=== PATIENT | female | born 1950 | race Caucasian/White ===

== ENCOUNTER 2020-08-27 06:32 | Inpatient (IN) | payer MEDICARE, OTHER, SELFPAY ==
--- NOTE | ~2020-08-27 | CT_ITS ---
EXAMINATION: CT abdomen pelvis w con INDICATION: Epigastric pain TECHNIQUE: Computed tomographic images of the abdomen and pelvis were obtained after the administrati on of 100 cc of Omnipaque 350 intravenous contrast. The dose-length product (DLP) was 589.17 mGy-cm. Automated exposure control and iterative reconstruction technique were employed. COMPARISON: None available FINDINGS: Minimal dependent atelectasis is present in the lung bases. The heart size is normal. Cysts of the liver measure up to 11 mm in the right hepatic lobe. The spleen and adrenal glands are unrema rkable. There is moderate fatty infiltration of the pancreas. There is intrahepatic and extrahepatic biliary dilatation with the common bile duct measuring up to 10 mm. There is mild gallbladder distent ion. There is a questionable stone in the distal common bile duct. A large posterior diverticulum of the fundus is noted in the stomach. Cysts of the kidneys measure up to 10 mm on the left. No patholog ically enlarged abdominal or pelvic lymph nodes are identified. There is no free intraperitoneal gas or evidence of bowel obstruction. There is severe lumbar spondylosis at L4-5. IMPRESSION: 1. Intrahepatic and extrahepatic biliary dilatation with possible choledocholithiasis in the distal c ommon bile duct. Recommend further evaluation by MRCP or ERCP. Reviewed, dictated and finalized at location A. IMPRESSION: 1. Intrahepatic and extrahepatic biliary dilatation with possible choledocholit hiasis in the distal common bile duct. Recommend further evaluation by MRCP or ERCP.
--- NOTE | ~2020-08-27 | MR_ITS ---
EXAMINATION: MR MRCP wo/w con/w 3D wo ind DATE: 08/28/2020 11:00 INDICATION: Choledocholithiasis presenting with epigastric pain, nausea and vomiting TECHNIQUE: Magnetic resonance imaging (MRI) of the abdomen was performed without and with 15 mL Multi andi intravenous contrast. Sequences included coronal T2-weighted SS-FSE, coronal T2-weighted FS SS- FSE, coronal T2-weighted FS FIESTA, axial T2-weighted FS FIESTA, axial T2-weighted FIESTA, sagittal T 2-weighted SS-FSE, axial T1-weighted dual-echo FSPGR, axial T2-weighted SS-FSE, axial T1-weighted LAV A, axial T2-weighted STIR FSE. Thick-slab T2-weighted FRFSE-XL images were obtained for magnetic reso nance cholangiopancreatography (MRCP). Rotating maximum intensity projection 3-D reconstructions of t he volumetric data were created by the technologist. Postcontrast sequences included a time course of axial T1-weighted LAVA. COMPARISON: CT dated 08/27/2020 FINDINGS: ABDOMEN MRI: Heart size is normal. No pericardial or pleural effusion. A few scattered nonenhancing T2 hyperintens e cysts, the largest in segment 7 measuring 10 mm in maximal diameter. Gallbladder is normal with no cholelithiasis. Trace amount of pericholecystic fluid at the gallbladder fossa. This moderate fatty r eplacement of the pancreas. Spleen and bilateral adrenal glands are normal. Prominent gas and fluid-f illed cyst arising from the gastric fundus. There are a few small nonenhancing T2 hyperintense left r enal cysts measuring up to 8mm. The visualized bowels are unremarkable. Moderate lower lumbar spondyl osis. ABDOMEN MRCP: Common hepatic duct is dilated to 9 mm. The common bile duct is dilated to 7 mm which is at the upper limits of normal for age. Intrahepatic biliary tree is unremarkable. No choledocholithiasis, strictu re or obstructing masses. The main pancreatic duct is normal. IMPRESSION: 1. Nonspecific minimal pericholecystic fluid at the gallbladder fossa along side the normal-appearing gallbladder. No cholelithiasis. 2. Borderline dilated common bile duct measuring 7 mm and common hepatic duct measuring up to 9 mm wi th no intrahepatic biliary ductal dilation or choledocholithiasis. Reviewed, dictated and finalized at location A. IMPRESSION: 1. Nonspecific minimal pericholecystic fluid at the gallbladder fossa along scot e the normal-appearing gallbladder. No cholelithiasis. 2. Borderline dilated common bile duct measuring 7 mm and common hepatic duct m easuring up to 9 mm with no intrahepatic biliary ductal dilation or choledochol ithiasis.
[2020-08-27 06:37] VITALS: BP 120/88; PULSE 88; RESP 20; TEMP 36.4; O2SAT 100
[2020-08-27 06:45] VITALS: BP 123/71; PULSE 81; RESP 20; O2SAT 100
[2020-08-27 06:58] LABS: Basophils Percent Auto 0.4 % (0.2-1.2); Eosinophils Absolute Auto 0.1 K/mm3 (0-0.3); Eosinophils Percent Auto 1.5 % (0-4.4); Hematocrit 39.1 % (37.0-47.0); Immature Granulocyte Absolute 0.03 K/mm3 (0.00-0.031); Immature Granulocyte Percent A 0.4 % (0-0.5); Lymphocytes Percent Auto 10.5 % (18.3-44.2); Mean Corpuscular HGB Conc 33.2 g/dl (32-36); Mean Corpuscular Hemoglobin 31.3 pg (26-34); Mean Corpuscular Volume 94.2 fl (80-100); Mean Platelet Volume 9.5 fl (7.4-10.4); Monocytes Absolute Auto 0.4 K/mm3 (0.1-0.6); Monocytes Percent Auto 5.1 % (2.6-8.5); Neutrophils Percent Auto 82.1 % (45.5-73.1); Platelet Count Result 172 k/mm3 (150-375); Red Blood Count 4.15 M/mm3 (4.2-5.4); Red Cell Distribution Width 12.9 % (11.5-14.5); White Blood Count 8.6 K/mm3 (4.5-10.0)
--- NOTE | 2020-08-27 07:10 | PC.NURSE ---
Pt attempting to give urine sample at this time.
[2020-08-27 07:11] LABS: Alanine Aminotransferase 74 U/L (4-35); Albumin Level 4.1 g/dL (3.5-5.1); Alkaline Phosphatase 81 U/L (38-126); Anion Gap 4 mmol/L (8-16); Aspartate Amino Transferase 197 U/L (14-36); Bilirubin,Total 0.7 mg/dL (0.2-1.3); Blood Urea Nitrogen 16 mg/dL (7-17); Calcium 9.4 mg/dL (8.4-10.2); Carbon Dioxide 32 mmol/L (22-30); Chloride 104 mmol/L (98-107); Estimated Glomerular Filt Rate > 60; Glucose 101 mg/dL (65-105); Lipase 64 U/L (23-300); Potassium 3.5 mmol/L (3.4-5.0); Sodium 140 mmol/L (137-145)
--- NOTE | 2020-08-27 07:30 | ED.ABDPAIN ---
HPI - Abdominal Pain General Chief Complaint: Abdominal Pain Stated Complaint: upper abd pain, vomting Time Seen by Provider: 08/27/20 07:19 History of Present Illness HPI narrative: Epigastric pain since early this morning. Severe. Radiates to back. Associated with one episode of vomiting. Improving in severity, now mild. One previous episode resolved spontaneously. No previous GI surgery. Related Data Home Medications Medication Instructions Recorded Confirmed bupropion HCl 300 mg PO QAM 08/27/20 08/27/20 zolpidem 10 mg PO HS 08/27/20 08/27/20 Allergies Allergy/AdvReac Type Severity Reaction Status Date / Time naproxen Allergy Unknown Rash Verified 08/27/20 06:46 Review of Systems Review of Systems: All systems reviewed & are unremarkable except as noted in HPI and below Constitutional: Constitutional: Denies chills and Denies fever(s) ENT: Reports system reviewed and no additional complaints, except as documented Cardiovascular: Cardiovascular: Denies chest pain Respiratory: Respiratory: Denies dyspnea Gastrointestinal: Gastrointestinal: Reports abdominal pain, Denies constipation, Denies diarrhea, Reports nausea and Reports vomiting Genitourinary: Genitourinary: Reports no additional female genitourinary complaints [facility] Past Medical History Medical History (Updated 08/27/20 @ 15:33 by Gulshan Dominguez MD) Depression with anxiety Insomnia Surgical History Surgical History (Updated 08/27/20 @ 14:21 by Odalys Chen NP) H/O emergency section History of dilatation and curettage Hx of cataract extraction Bilateral S/P cervical spinal fusion C5 - C6 Family History Family History (Updated 08/27/20 @ 14:28 by Odalys Chen NP) Son Accident Father COPD (chronic obstructive pulmonary disease) Mother COPD (chronic obstructive pulmonary disease) Cervical cancer Social History Social History (Updated 08/27/20 @ 14:29 by Odalys Chen NP) Social History: 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 She is to her who is also a teacher. They had 3 children but the oldest son at the age of 19. She had all 3 boys. She has not drink alcohol in many years. She has never smoked. She does not use any marijuana or illicit drug. The patient desires to have her is a durable power patent attorney for healthcare. She desires to be a full code. Smoking status: Never smoker Gender identity (if verbalized by the patient): Female Exam Const: General: no acute distress and alert Nutritional Appearance: well nourished Orientation/consciousness: patient oriented x3 HENMT: Head: normal to inspection Resp: Effort & Inspection: normal respiratory effort Auscultation: clear to auscultation bilaterally Cardio: Rate: regular rate Rhythm: regular rhythm GI: Inspection: non-distended GI Palp: Yes Soft to palpation, Yes Tenderness to palpation present (GI) (mild epigastric), No Guarding due to palpation present (GI) and No Rebound tenderness present Skin: General skin exam: normal color Neuro: General: patient oriented x3 and moves all extremities Speech: normal speech Extrem: General: normal to inspection Psych: Appearance: grossly normal and well kempt Mental Status: mental status grossly normal Affect: normal affect Attitude: cooperative Course Vital Signs Vital signs: Vital Signs Temperature 36.4 C 08/27/20 06:37 Pulse Rate 88 08/27/20 06:37 Respiratory Rate 20 08/27/20 06:37 Blood Pressure 120/88 08/27/20 06:37 Pulse Oximetry 100 08/27/20 06:37 Temperature 36.0 C L 08/27/20 14:00 Pulse Rate 86 08/27/20 14:00 Respiratory Rate 16 08/27/20 14:00 Blood Pressure 120/68 08/27/20 14:00 Pulse Oximetry 97 08/27/20 14:00 MDM - Abdominal Pain MDM Narrative Medical decision making narrative: H&P sounds likely gall bladder disease. Mild elevations and CT results also suspicio
[2020-08-27 07:48] LABS: Add Urine Microscopic? YES; Appearance Urine Cloudy (Clear); Bacteria Urine Trace /hpf; Bilirubin Urine Negative (Negative); Blood Urine Negative (Negative); Color Urine Yellow (Yellow); Glucose Urine UA Negative (Negative); Ketones Urine Trace mg/dL (Negative); Leukocyte Esterase Ur Negative LEU/UL (Negative); Mucus Urine Rare /lpf; Nitrate Urine Negative (Negative); Protein Urine Negative (Negative); RBC Urine 0-2 /hpf (0-2); Specific Grav Ur 1.021 (1.001-1.035); Urobilinogen Urine Negative mg/dL (<2.0); WBC Urine 0-3 /hpf
[2020-08-27 09:30] VITALS: BP 112/72; PULSE 78; RESP 18; O2SAT 100
[2020-08-27 10:59] VITALS: BP 121/86; PULSE 73; RESP 18; O2SAT 98
--- NOTE | 2020-08-27 11:05 | PC.NURSE ---
This patient, Sharon Heller, was admitted to Medical Room 347-. Patient/family oriented to hospital policies and general routines including ID bracelet, bed and alarms, visiting hours, pain management, procedures, bathroom and other care routines, personal items, smoking policy, room service/diet, and visiting hours. Information on how to activate the Rapid Response Team has been discussed. Patient/Family are encouraged to report perceived risks to care and to ask questions if they do not understand what they are told or what they should do.
[2020-08-27] MEDS: LACTATED RINGERS 1,000 ML 75 ML IV CONT (12:06)
[2020-08-27 14:00] VITALS: BP 120/68; PULSE 86; RESP 16; TEMP 36; O2SAT 97
--- NOTE | 2020-08-27 14:02 | PM.IMHP ---
H&P: HPI History of Present Illness Date/Time: 08/27/20 14:02 this is a 69-year-old female patient who is fairly healthy. She is only on 2 medications that was started after the passing of her son. He was only 19 years old at the time. The patient stated that she had an episode this past Friday her she had this midsternal severe stabbing pain that radiated to her back and her shoulder. She did not eat any fatty foods or anything greasy. She stated that she has been eating a healthy diet and had to use an apples before bed but then developed this discomfort. She laid in the recliner that night which seemed to help and she took some Tums and her pain eventually went away. However this morning at 4:00 a.m. she developed this discomfort again. She said it was midsternal severe sharp pain that went away to her back. She not had any previous gallbladder issues. She took some Tums at 4:00 a.m. this morning went back to bed but then woke up later and the pain was still there. This is when she decided to come to the emergency room. CT of the abdomen was read per radiologist as intrahepatic and extrahepatic biliary dilatation with possible choledocholithiasis in the distal common bile duct. Recommend further evaluation by MRCP or ERCP. AST is 197 any ALT 74. GI has been consulted and has already plan on a MRCP. A clear liquid diet was ordered for the patient. She had only vomited 1 time this morning.. She no longer has any discomfort. On Zosyn. The patient is being admitted to inpatient status on the date of service of 08/27/2020. Chief Complaint: Abdominal pain Review of Systems Review of Systems: All systems reviewed & are unremarkable except as noted in HPI and below Constitutional: Constitutional: Reports as per HPI and Reports no additional constitutional complaints Eyes: Eyes: Reports as per HPI and Reports no additional eye complaints ENT: Reports system reviewed and no additional complaints, except as documented and Reports Normal hearing present Cardiovascular: Cardiovascular: Reports no additional cardiovascular complaints Respiratory: Respiratory: Reports no additional respiratory complaints and Reports no additional respiratory complaints Gastrointestinal: Gastrointestinal: Reports as per HPI and Reports no additional gastrointestinal complaints Musculoskeletal: Musculoskeletal: Reports no additional musculoskeletal complaints Integumentary/Breasts: Skin/Breast: Reports system reviewed and no additional complaints, except as docu and Reports as per HPI Neurologic: Reports system reviewed and no additional complaints, except as documented, Reports as per HPI and Reports Normal hearing present Psychiatric: Psychiatric: Reports no additional psychiatric complaints and Reports as per HPI Endocrine: Endocrine: Reports no additional endocrine complaints Hematologic/Lymphatic: Hematologic/Lymphatic: Reports no additional hematologic/lymphatic complaints Allergic/Immunologic: Allergic/Immunologic: Reports no additional allergic/immunologic complaints PMFSH Past Medical History Medical History (Updated 08/27/20 @ 14:33 by Odalys Chen NP) Depression with anxiety Insomnia Surgical History Surgical History (Updated 08/27/20 @ 14:21 by Odalys Chen NP) H/O emergency section History of dilatation and curettage Hx of cataract extraction Bilateral S/P cervical spinal fusion C5 - C6 Family History Family History (Updated 08/27/20 @ 14:28 by Odalys Chen NP) Son Accident Father COPD (chronic obstructive pulmonary disease) Mother COPD (chronic obstructive pulmonary disease) Cervical cancer Social History Social History (Updated 08/27/20 @ 14:29 by Odalys Chen NP) Social History: 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 She is to her who is also a teacher. They had 3 children but the oldest son at the age of 19. She had all 3 boys.
[2020-08-27] MEDS: LOPERAMIDE HCL 2 MG CAPSULE PO (16:08)
[2020-08-27] MEDS: ZOLPIDEM TARTRATE (*CRX) 5 MG TABLET 10 MG PO (21:27)
[2020-08-27 21:47] VITALS: BP 106/63; PULSE 72; RESP 16; TEMP 36.7; O2SAT 98
[2020-08-28 05:39] LABS: Basophils Percent Auto 0.4 % (0.2-1.2); Eosinophils Absolute Auto 0.1 K/mm3 (0-0.3); Hematocrit 37.2 % (37.0-47.0); Hemoglobin 12.5 g/dL (12.0-15.0); Immature Granulocyte Absolute 0.01 K/mm3 (0.00-0.031); Immature Granulocyte Percent A 0.2 % (0-0.5); Lymphocytes Absolute Auto 1.03 K/mm3 (0.9-3.2); Lymphocytes Percent Auto 22.8 % (18.3-44.2); Mean Corpuscular HGB Conc 33.6 g/dl (32-36); Mean Corpuscular Hemoglobin 32.1 pg (26-34); Mean Corpuscular Volume 95.4 fl (80-100); Mean Platelet Volume 9.6 fl (7.4-10.4); Monocytes Absolute Auto 0.2 K/mm3 (0.1-0.6); Monocytes Percent Auto 5.3 % (2.6-8.5); Neutrophils Absolute Auto 3.1 K/mm3 (1.3-6.7); Neutrophils Percent Auto 69.3 % (45.5-73.1); Platelet Count Result 160 k/mm3 (150-375); Red Cell Distribution Width 13.2 % (11.5-14.5); White Blood Count 4.5 K/mm3 (4.5-10.0)
[2020-08-28] MEDS: LACTATED RINGERS 1,000 ML 75 ML IV CONT (05:49)
[2020-08-28 05:50] LABS: Lactic Acid Reflex 0.8 mmol/L (0.7-2.1)
[2020-08-28 05:53] VITALS: BP 107/61; PULSE 95; RESP 16; TEMP 36; O2SAT 97
[2020-08-28 05:59] LABS: Alanine Aminotransferase 124 U/L (4-35); Albumin Level 3.4 g/dL (3.5-5.1); Alkaline Phosphatase 69 U/L (38-126); Anion Gap 2 mmol/L (8-16); Aspartate Amino Transferase 110 U/L (14-36); Bilirubin,Total 0.3 mg/dL (0.2-1.3); Blood Urea Nitrogen 7 mg/dL (7-17); Calcium 8.5 mg/dL (8.4-10.2); Carbon Dioxide 35 mmol/L (22-30); Chloride 106 mmol/L (98-107); Estimated CRCL calculation 55 ml/min; Estimated Glomerular Filt Rate > 60; Glucose 99 mg/dL (65-105); Magnesium 1.9 mg/dL (1.6-2.3); Potassium 3.9 mmol/L (3.4-5.0); Sodium 143 mmol/L (137-145)
[2020-08-28] MEDS: buPROPion HCL XL (24 HR) 150 MG TABCR 300 MG PO (08:07)
[2020-08-28] MEDS: LORazepam INJ (*CRX) 2 MG/ML VIAL 0.5 MG IV PUSH (09:38)
--- NOTE | 2020-08-28 13:04 | PM.CNGS ---
Assessment and Plan Assessment and plan (1) Epigastric abdominal pain: Code(s): R10.13 - Epigastric pain Status: Acute Assessment and Plan: I have reviewed the CT and MRI both independently and with Dr. Valladares in Radiology. I have also discussed the patient's case with the hospitalist and GI. The patient had findings on the CT that were concerning for biliary duct dilation and possible choledocholithiasis. She also had slight elevation in her liver enzymes that would potentially support this finding. Her bilirubin has remained normal and her symptoms have resolved. The follow-up MRI showed no evidence of cholelithiasis or common bile duct obstruction. I discussed with the patient that she could have passed a small stone, but there are no other signs of cholelithiasis on imaging. There also other possibilities of cardiac or other GI causes of her pain. I discussed options of proceeding with laparoscopic cholecystectomy versus observation. Laparoscopic cholecystectomy would offer a potential prevention of recurrent attacks like this in the future, but given that she has no other signs of cholelithiasis surgery may offer no benefit over observation alone. Patient wishes to proceed with observation. I discussed maintaining a low-fat diet and also discussed warning signs of recurrent attacks including epigastric pain along with signs jaundice, scleral icterus, or dark tea-colored urine. Patient feels come with observation at this time. She was given my contact information should she wish to proceed with surgery in the future or have further questions. If she tolerates a low-fat diet, she may be discharged from surgical standpoint. Follow-up as needed. (2) Elevated liver enzymes: Code(s): R74.8 - Abnormal levels of other serum enzymes Status: Acute (3) Abnormal CT of the abdomen: Code(s): R93.5 - Abnormal findings on diagnostic imaging of other abdominal regions, including retroperitoneum Status: Acute History of Present Illness Consult details Consult date: 08/28/20 Reason for consult: abdominal pain Requesting physician: Filiberto Paez MD Narrative: this is a 69-year-old woman who I am asked to see in regards to possible biliary colic. She presented to the emergency department on 08/27 with complaints of epigastric pain that started around 4:00 a.m.. This woke her from sleep and she felt somewhat substernal and epigastric pain that was followed by an episode of nausea and vomiting. She did not recall any heavy or fried foods that she ate the night before for dinner. She did have 1 mild episode similar to this about 4 days prior, but this resolved on its own. Prior to this she had never experienced any symptoms like this in the past. Her symptoms eventually went away in the emergency department and she has not had any recurrent symptoms since. She denies prior history of liver problems. She has had a history of GERD but denies any history of peptic ulcer disease. She states that these symptoms were different than what she typically gets with GERD. She denies any family history of gallbladder disease. She does note that she has lost 19 lb over the past 2 months but this has been intentional due to healthy diet and activity changes. She states that she has been eating smaller portions and eating more fish, fruits, and vegetables. She has also been more active with frequent walks and light exercise. Review of Systems Review of Systems: All systems reviewed & are unremarkable except as noted in HPI and below Eyes: Eyes: Denies change in vision ENT: Denies hearing loss, Denies neck pain and Denies sore throat Cardiovascular: Cardiovascular: Denies chest pain and Denies dyspnea Respiratory: Respiratory: Denies cough, Denies dyspnea and Denies wheezing Gastrointestinal: Gastrointestinal: Reports as per HPI Genitourinary: Genitourinary: Denies hematuria and Denies dysuria Musc
--- NOTE | 2020-08-28 13:55 | PM.IMPN ---
Progress Note: A&P Assessment and Plan (1) Epigastric abdominal pain: Code(s): R10.13 - Epigastric pain Status: Acute Assessment and Plan: Initially felt to be choledocholithiasis on CT abd. MRCP shows no stones or evidence of cholecystitis. May have been related to passed stone given the transaminitis? EGD tomorrow by Dr Tripathi to evaluate for gastritis or ulcers. Lipase negative. Appreciate GI and general surgery recommendations. Discussed case with Dr Tripathi and Dr Frausto. Plan is for EGD tomorrow. If she continues to have issues and wishes for surgical intervention, she can see Dr Frausto on outpatient basis. Continue supportive care with IV hydration, antiemetics and pain control as needed (PRN Tylenol with caution given transaminitis). Started low fat diet, NPO at midnight. (2) Elevated liver enzymes: Code(s): R74.8 - Abnormal levels of other serum enzymes Status: Acute Assessment and Plan: Unsure of chronicity with no previous labs available for comparison. Bilirubin is normal. May have passed a gallstone? Hepatitis panel in AM. (3) Depression with anxiety: Code(s): F41.8 - Other specified anxiety disorders Status: Chronic Assessment and Plan: Continue home Wellbutrin. Stable, no acute issues. (4) Insomnia: Code(s): G47.00 - Insomnia, unspecified Status: Chronic Assessment and Plan: Continue her home zolpidem. Subjective Date/time seen: 08/28/20 13:30 Interval history: Ms. Heller is a pleasant 69yo F admitted for abdominal pain. She is seen in follow-up this afternoon with her , Denys, at the bedside. She reports a few acute episodes of epigastric abdominal pain, last being early yesterday morning that woke her out of her sleep and became severe enough for her to come to ER. At that time, pain radiated to her back between shoulder blades. Abdominal pain is resolved now. She had one episode of emesis yesterday, no nausea or vomiting today. She denies chest pain or shortness of breath. Her only complaint at this time is being hungry since she was NPO for testing. Review of Systems Review of Systems: All systems reviewed & are unremarkable except as noted in HPI and below Exam Narrative: Exam Narrative: General: Female resting comfortably sitting up in bed in no acute distress. HEENT: Normocephalic, EOMI, oral mucosa tacky. Cardiovascular: Rate and rhythm are regular. Respiratory: Lungs clear to auscultation bilaterally. Respirations even and non-labored. Abdomen: Soft, non-tender to palpation in all 4 quadrants, non-distended, bowel sounds present. Extremities: Peripheral pulses intact. No edema. Neuro: No focal neurological deficits. Speech is clear. Objective Data Vital Signs Vital Signs: Last Vital Signs Temp 96.9 F L 08/28/20 14:00 Pulse 84 08/28/20 14:00 Resp 18 08/28/20 14:00 BP 93/52 L 08/28/20 14:00 Pulse Ox 100 08/28/20 14:00 Intake/Output Intake/Output: Intake & Output 08/25/20 08/26/20 08/27/20 08/28/20 23:59 23:59 23:59 23:59 Intake Total 150 1100 Balance 150 1100 Meds/Results Medications: Active Medications Generic Name Dose Route Start Last Admin Trade Name Freq PRN Reason Stop Dose Admin Bupropion HCl 300 mg 08/28/20 09:00 08/28/20 08:07 Bupropion Hcl Xl (24 Hr) 150 Mg Tabcr PO 300 mg QAM CLAY Administration Lactated Ringer's 1,000 mls @ 75 mls/hr 08/27/20 10:05 08/28/20 05:49 Lr - Lactated Ringers Iv IV CONT 75 mls/hr .[id number] CLAY Administration Piperacillin/Tazobactam/Dextrose 3.375 gm in 50 mls @ 100 mls/hr 08/27/20 17:00 08/28/20 11:45 Zosyn 3.375 Gm/D5w 50ml Pm IVPB Infused Q6HR CLAY Infusion Acetaminophen 1,000 mg in 100 mls @ 400 mls/hr 08/27/20 14:38
--- NOTE | 2020-08-28 13:56 | ECG_ITS ---
Measurements Intervals [place] Rate: 84 P: 60 MT: 159 QRS: -24 QRSD: 87 T: 41 QT: 364 QTc: 431 Interpretive Statements SINUS RHYTHM DELAYED PRECORDIAL R/S TRANSITION BORDERLINE T WAVE ABNORMALITY- INFERIOR LEADS BORDERLINE ECG Electronically Signed On 08-28-2020 14:54:15 CDT by Michael Lynch D.O.
[2020-08-28 14:00] VITALS: BP 93/52; PULSE 84; RESP 18; TEMP 36.1; O2SAT 100
--- NOTE | 2020-08-28 15:41 | WPDGICN ---
Assessment and Plan Assessment and plan (1) Epigastric abdominal pain: Code(s): R10.13 - Epigastric pain Status: Acute Assessment and Plan: better now, probably she passed small stone (biliary duct reviewed by mrcp- no strictures, stones or lesions) will do EGD tomorrow (patient would like to know if ulcers, hernia, etc) (2) Elevated liver enzymes: Code(s): R74.8 - Abnormal levels of other serum enzymes Status: Acute Assessment and Plan: probably biliary related, repeat again tomorrow surgery evaluated patient and patient decided observation will get also hepatitis panel she denies previous history of elevated liver enzymes (3) Abnormal CT of the abdomen: Code(s): R93.5 - Abnormal findings on diagnostic imaging of other abdominal regions, including retroperitoneum Status: Acute Assessment and Plan: reviewed (4) Nausea and vomiting in adult: Code(s): R11.2 - Nausea with vomiting, unspecified Status: Acute Assessment and Plan: egd tomorrow (5) Colon cancer screening: Code(s): Z12.11 - Encounter for screening for malignant neoplasm of colon Status: Acute Assessment and Plan: she is due to have a colonoscopy, will set up as outpatient GI Consult Note Consult date/time: 08/28/20 15:41 Reason for consult: epigastric pain, elevated liver enzymes HPI: Sharon Heller is a 69 year old female here after had severe episode of epigastric pain with radiation to her back that woke her up, stabbing sensation, associated with nausea and vomiting, took Tums and pain resolved when she arrived to ER. She had similar episode last Friday but went away quickly. CT of the abdomen reviewed, mild intrahepatic and extrahepatic biliary dilatation with possible choledocholithiasis in the distal common bile duct. AST 197 and ALT 74 (denies history of liver disease), finally MRCP was done, showed nonspecific minimal pericholecystic fluid at the gallbladder fossa along side the normal-appearing gallbladder. No cholelithiasis, borderline dilated common bile duct measuring 7 mm and common hepatic duct measuring up to 9 mm with no intrahepatic biliary ductal dilation or choledocholithiasis. Now she is asymptomatic, never had EGD. Her last colonoscopy 10 years ago. She also lost some weight but after eating healthier food and exercising more. Review of Systems Constitutional: Constitutional: Denies chills Eyes: Eyes: Denies blurry vision ENT: Reports Normal hearing present Cardiovascular: Cardiovascular: Denies chest pain Respiratory: Respiratory: Denies dyspnea Gastrointestinal: Gastrointestinal: Reports abdominal pain, Reports nausea and Reports vomiting Genitourinary: Genitourinary: Denies hematuria Musculoskeletal: Musculoskeletal: Denies neck pain Integumentary/Breasts: Skin/Breast: Denies dry skin Neurologic: Denies headache(s) Psychiatric: Psychiatric: Reports no additional psychiatric complaints PMF Past Medical History Medical History Depression with anxiety Insomnia Surgical History Surgical History H/O emergency section History of dilatation and curettage Hx of cataract extraction Bilateral S/P cervical spinal fusion C5 - C6 Family History Family History Son Accident Father COPD (chronic obstructive pulmonary disease) Mother COPD (chronic obstructive pulmonary disease) Cervical cancer Social History Social History Social History: 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 She is to her who is also a teacher. They had 3 children but the oldest son at the age of 19. She had all 3 boys. She has not drink alcohol in many years. She has never smo
[2020-08-28 16:54] VITALS: PULSE 88; RESP 18; O2SAT 98
[2020-08-28 20:00] VITALS: PULSE 88; RESP 18; O2SAT 98
[2020-08-28 21:23] VITALS: BP 114/59; PULSE 70; RESP 16; TEMP 36.1; O2SAT 100
[2020-08-28] MEDS: ZOLPIDEM TARTRATE (*CRX) 5 MG TABLET 10 MG PO (21:42)
--- NOTE | 2020-08-28 21:54 | PC.NURSE ---
At 2020 IVF running and pt states it was leaking and beeps frequently, offered to restart iv at this time and pt refused.
--- NOTE | 2020-08-28 21:55 | PC.NURSE ---
Pt again upset about IV and told Avila BAUMAN we just don't care about iv and that it has been leaking, again went in to restart iv and pt refused again to have it restarted.
[2020-08-29 04:29] VITALS: BP 108/61; PULSE 70; RESP 17; TEMP 36.5; O2SAT 97
[2020-08-29 06:00] LABS: Alanine Aminotransferase 97 U/L (4-35); Albumin Level 3.3 g/dL (3.5-5.1); Alkaline Phosphatase 68 U/L (38-126); Anion Gap 2 mmol/L (8-16); Aspartate Amino Transferase 66 U/L (14-36); Bilirubin,Total 0.2 mg/dL (0.2-1.3); Blood Urea Nitrogen 8 mg/dL (7-17); Calcium 8.1 mg/dL (8.4-10.2); Carbon Dioxide 30 mmol/L (22-30); Chloride 109 mmol/L (98-107); Estimated CRCL calculation 69 ml/min; Estimated Glomerular Filt Rate > 60; Glucose 89 mg/dL (65-105); Potassium 3.6 mmol/L (3.4-5.0); Sodium 141 mmol/L (137-145)
[2020-08-29 06:49] LABS: Hepatitis B Surface Antigen Negative (Negative)
[2020-08-29 06:55] LABS: HAV RESULT Negative (Negative); Hepatitis B Core IgM Result Negative (Negative)
[2020-08-29 07:06] LABS: Hepatitis C Virus Antibody Negative (Negative)
[2020-08-29] MEDS: buPROPion HCL XL (24 HR) 150 MG TABCR 300 MG PO (08:40)
--- NOTE | 2020-08-29 09:00 | PC.NURSE ---
Patient to GI lab via hospital wheelchair.
[2020-08-29 09:19] VITALS: BP 118/75; PULSE 80; RESP 16; TEMP 36; O2SAT 99
[2020-08-29] MEDS: LACTATED RINGERS 1,000 ML 150 ML IV CONT (09:21)
--- NOTE | 2020-08-29 09:45 | WPDANESEPPF ---
Anes - Initial Pre Proc Eval Procedure: Operation Date: 08/29/20 13:00 Proposed Procedures p Esophagogastroduodenoscopy - Filiberto Paez MD Date/Time: 08/29/20 09:45 Surgeon: Megan Alvares PA-C Pre Op Diagnosis: Acute calculous cholecystitis/choledocolithiasis Patient Data Age: 69 Gender: F Height: 5 ft 6 in Weight: 79 kg Last Vital Signs Temp 36.0 C L 08/29/20 09:19 Pulse 80 08/29/20 09:19 Resp 16 08/29/20 09:19 BP 118/75 08/29/20 09:19 Pulse Ox 99 08/29/20 09:19 Allergies Allergy/AdvReac Type Severity Reaction Status Date / Time naproxen Allergy Unknown Rash Verified 08/27/20 06:46 Home Medications Medication Instructions Recorded Confirmed Type bupropion HCl 300 mg PO QAM 08/27/20 08/27/20 History zolpidem 10 mg PO HS 08/27/20 08/27/20 History Laboratory Tests 08/29/20 08/29/20 05:26 05:26 Sodium 141 mmol/L mmol/L (137-145) Potassium 3.6 mmol/L mmol/L (3.4-5.0) Chloride 109 mmol/L H mmol/L (98-107) Carbon Dioxide 30 mmol/L mmol/L (22-30) Anion Gap 2 mmol/L L mmol/L (8-16) BUN 8 mg/dL mg/dL (7-17) Creatinine 0.70 mg/dL mg/dL (0.7-1.0) Estim Creat Clear Calc 69 ml/min ml/min Estimated GFR > 60 (59 - ) Glucose 89 mg/dL mg/dL (65-105) Calcium 8.1 mg/dL L mg/dL (8.4-10.2) Magnesium 2.0 mg/dL mg/dL (1.6-2.3) Total Bilirubin 0.2 mg/dL mg/dL (0.2-1.3) AST 66 U/L H U/L (14-36) ALT 97 U/L H U/L (4-35) Alkaline Phosphatase 68 U/L U/L (38-126) Total Protein 6.0 g/dL L g/dL (6.3-8.2) Albumin 3.3 g/dL L g/dL (3.5-5.1) Hepatitis A IgM Ab Negative (Negative) Hep Bs Antigen Negative (Negative) Hep B Core IgM Ab Negative (Negative) Hepatitis C Ab Screen Negative (Negative) Patient hx anesthesia problems: none Family hx anesthesia problems: none PMFSH Past Medical History Medical History Colon cancer screening Depression with anxiety Insomnia Nausea and vomiting in adult Surgical History Surgical History H/O emergency section History of dilatation and curettage Hx of cataract extraction Bilateral S/P cervical spinal fusion C5 - C6 Family History Family History Son Accident Father COPD (chronic obstructive pulmonary disease) Mother COPD (chronic obstructive pulmonary disease) Cervical cancer Social History Social History Social History: 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 She is to her who is also a teacher. They had 3 children but the oldest son at the age of 19. She had all 3 boys. She has not drink alcohol in many years. She has never smoked. She does not use any marijuana or illicit drug. The patient desires to have her is a durable power estate planning attorney for healthcare. She desires to be a full code. Smoking status: Never smoker Gender identity (if verbalized by the patient): Female Anes - Eval Final PreProcedure Day of Procedure 08/29/20 09:45 Patient weight: overweight Heart: regular rate and rhythm Lungs: clear to auscultation Airway: Mallampati scale class II Neurological: other (alert) Last oral intake: >/= 8 hours ASA classification: II Emergent: no Anesthetic plan: proceed Anesthesia type and monitoring: general GIVS and standard monitoring Informed Consent: The patient's anesthetic plan and its attendant risks and benefits were discussed with the patient/family/POA. Questions were solicited and answers provided to the satisfaction of the patient/family/POA.
--- NOTE | 2020-08-29 10:37 | WPDHPUPDATE1 ---
History and Physical Update Update Date/Time: 08/29/20 10:37 History and Physical has been reviewed, including an updated exam of the patient. There are NO changes in the patient's condition. Risks, benefits, and alternatives have been discussed and questions answered. Patient agrees to proceed with procedure.
[2020-08-29 10:40] VITALS: BP 104/66; PULSE 80; RESP 18; O2SAT 96
[2020-08-29 10:50] VITALS: BP 96/66; PULSE 81; RESP 23; O2SAT 100
[2020-08-29 11:00] VITALS: BP 97/67; PULSE 74; RESP 20; O2SAT 100
--- NOTE | 2020-08-29 11:10 | PC.NURSE ---
Patient in room from GI lab via hospital stretcher.
--- NOTE | 2020-08-29 13:57 | PM.IMPN ---
Progress Note: A&P Assessment and Plan (1) Gastritis: Code(s): K29.70 - Gastritis, unspecified, without bleeding Status: Acute Assessment and Plan: EGD performed today by Dr Tripathi showing mild gastritis. He does not believe this is the cause of her symptoms but was found on EGD. Recommended daily PPI for now and have her follow up. She will need Colonoscopy outpatient by Dr. Tripathi. Continue Home medications and Low fat diet. (2) Epigastric abdominal pain: Code(s): R10.13 - Epigastric pain Status: Acute Assessment and Plan: Initially felt to be choledocholithiasis on CT abd. MRCP shows no stones or evidence of cholecystitis. May have been related to passed stone given the transaminitis? Lipase negative. Appreciate GI and general surgery recommendations. Discussed case with Dr Tripathi and Dr Frausto. If she continues to have issues and wishes for surgical intervention, she can see Dr Frausto on outpatient basis. He denies any more issues at this time. Plan is to discharge her home. Recheck LFTs in 1 week, follow [facility] provider, GI and surgery if she would like to move forward with a cholecystectomy. (3) Elevated liver enzymes: Code(s): R74.8 - Abnormal levels of other serum enzymes Status: Acute Assessment and Plan: Unsure of chronicity with no previous labs available for comparison. Bilirubin is normal. May have passed a gallstone? Hepatitis panel is normal. Recheck CMP in 1 week and follow-up with primary care provider (4) Depression with anxiety: Code(s): F41.8 - Other specified anxiety disorders Status: Chronic Assessment and Plan: Continue home Wellbutrin. Stable, no acute issues. (5) Insomnia: Code(s): G47.00 - Insomnia, unspecified Status: Chronic Assessment and Plan: Continue her home zolpidem. Time Spent With Patient Time with patient: 25 - 35 minutes Subjective Date/time seen: 08/29/20 13:57 Interval history: Ms. Heller is a pleasant 69yo F admitted for abdominal pain. She is seen in follow-up this afternoon with her , Denys, at the bedside. She reports a few acute episodes of epigastric abdominal pain, last being early yesterday morning that woke her out of her sleep and became severe enough for her to come to ER. Date of service 08/29/2020: Patient reports feeling well at this time. She is not having any more chest pain, shortness of breath, abdominal pain, nausea, vomiting, diarrhea, leg swelling, fevers, chills. She just had a bowel movement which was normal for her, denies any melena or blood. She is feeling back to her baseline without any concerns and radial home. Denies any GERD issues, other than belching and coughing after eating. Review of Systems Review of Systems: All systems reviewed & are unremarkable except as noted in HPI and below Exam Narrative: Exam Narrative: General: Ivujf-[id number]-azdm-old woman walking back to the bed from the bathroom. Appears comfortable. In no acute distress. Skin: No jaundice or cyanosis. Good skin turgor. Neck: Full range of motion. Supple. Respiratory: Lungs are clear to auscultation bilaterally. No bony chest wall tenderness. Cardiovascular: The heart has a regular rate and rhythm without murmur. Lower extremities: No lower extremity edema. Distal pulses are easily palpated. No calf tenderness to palpation. Gastrointestinal: The abdomen is soft, nontender and nondistended with active bowel sounds. Psychiatric: Lucid and oriented. Memory intact. Neurologic: No focal deficits. Speech is clear. No facial drooping. Objective Data Vital Signs Vital Signs: Vital Signs - 24 hr 08/28/20 14:00 08/28/20 16:54
--- NOTE | 2020-08-29 14:06 | PM.DS ---
DS: Admitting Diagnosis Admitting Diagnosis Admitting Diagnosis: Abdominal pain DS: Discharge Diagnosis Discharge Diagnosis (1) Gastritis: Code(s): K29.70 - Gastritis, unspecified, without bleeding Status: Acute Assessment and Plan: EGD performed today by Dr Tripathi showing mild gastritis. He does not believe this is the cause of her symptoms but was found on EGD. Recommended daily PPI for now and have her follow up. She will need Colonoscopy outpatient by Dr. Tripathi. Continue Home medications and Low fat diet. (2) Epigastric abdominal pain: Code(s): R10.13 - Epigastric pain Status: Acute Assessment and Plan: Initially felt to be choledocholithiasis on CT abd. MRCP shows no stones or evidence of cholecystitis. May have been related to passed stone given the transaminitis? Lipase negative. Appreciate GI and general surgery recommendations. Discussed case with Dr Tripathi and Dr Frausto. If she continues to have issues and wishes for surgical intervention, she can see Dr Frausto on outpatient basis. He denies any more issues at this time. Plan is to discharge her home. Recheck LFTs in 1 week, follow [facility] care provider, GI and surgery if she would like to move forward with a cholecystectomy. (3) Elevated liver enzymes: Code(s): R74.8 - Abnormal levels of other serum enzymes Status: Acute Assessment and Plan: Unsure of chronicity with no previous labs available for comparison. Bilirubin is normal. May have passed a gallstone? Hepatitis panel is normal. Recheck CMP in 1 week and follow-up with primary care provider (4) Depression with anxiety: Code(s): F41.8 - Other specified anxiety disorders Status: Chronic Assessment and Plan: Continue home Wellbutrin. Stable, no acute issues. (5) Insomnia: Code(s): G47.00 - Insomnia, unspecified Status: Chronic Assessment and Plan: Continue her home zolpidem. DS: Summary Hospital Course Reason for hospitalization: 69-year-old woman with a history of depression, who presents emergency room with epigastric abdominal pain with radiation to her back with associated nausea and vomiting. Denies similar symptoms before. Initial labs showed she was afebrile, non tachycardic, normal blood pressure and normal oxygen saturation on room air. Normal CBC with differential, elevated LFTs with an AST of 197 and ALT at 74. Normal lipase. Urinalysis was normal. Hepatitis panel was normal. CT abdomen showed Intrahepatic and extrahepatic biliary dilatation with possible choledocholithiasis in the distal common bile duct. Recommend further evaluation by MRCP or ERCP. MRCP showed Intrahepatic and extrahepatic biliary dilatation with possible choledocholithiasis in the distal common bile duct. Recommend further evaluation by MRCP or ERCP. It was discussed with the surgeon who gave her the risks of undergoing a cholecystectomy verses observation management for a possible gallbladder stone that passed. She would like the observation management at this time and follow-up if any more issues arise. GI recommended EGD for further evaluation of because which showed mild gastritis. Do not believe this is the reason for her initial symptoms were coming in but recommends a daily PPI. She will follow-up with her primary care provider and recheck a CMP in 1 week. LFTs are trending down. Follow-up with GI as an outpatient for colonoscopy and surgery if more symptoms arise. Patient understands and agrees the plan all questions answered. Hospital Course: See above Status at Discharge Cognitive/behavioral status at discharge: Stable, improved. Time Volodymyr
== END 2020-08-29 14:40 | disposition home or self-care (01) | DRG 392 ==
LOC: ANHED 11:19 → ANH3MED 15:33
PROVIDERS: Emergency Medicine; Internal Medicine Gastroenterology; Nurse Practitioner; Admitting Provider Internal Medicine; Emergency Provider Emergency Medicine; PCP Internal Medicine; Visit Provider Physician Assistant
PROC: 0DJ08ZZ Inspection of Upper Intestinal Tract, Via Natural or Artificial Opening Endoscopic (ICD-10-PCS; CPT 43235; principal; 2020-08-29 13:00)
DX: K29.70 Gastritis, unspecified, without bleeding (principal); K31.4 Gastric diverticulum; K31.7 Polyp of stomach and duodenum; R10.13 Epigastric pain; R74.8 Abnormal levels of other serum enzymes; R93.5 Abnormal findings on diagnostic imaging of other abdominal regions, including retroperitoneum; F41.8 Other specified anxiety disorders; G47.00 Insomnia, unspecified; M19.90 Unspecified osteoarthritis, unspecified site; Z79.899 Other long term (current) drug therapy; Z98.42 Cataract extraction status, left eye; Z98.41 Cataract extraction status, right eye
CPT/HCPCS: 36415; 74177; 74183; 76376; 80053; 80074; 81001; 83605; 83690; 83735; 84443; 85025; 88305; 93005; 99285; A9270; A9577; J2060; J2543; J2704; J7120; Q9967

== ENCOUNTER → 2020-09-01 15:07 | Outpatient (CLI) | payer MEDICARE, OTHER, SELFPAY ==
--- NOTE | ~2020-09-01 | MM_ITS ---
EXAMINATION: MM screening [facility] BI w jayce HISTORY: Screening mammogram TECHNIQUE: Craniocaudal and mediolateral oblique 3-D tomosynthesis images were obtained and synthetic 2-D images were generated. CAD analysis was submitted and interpreted. COMPARISON: 08/07/2015, 01/19/2014, 06/08/2013, 06/01/2013 BREAST PARENCHYMAL COMPOSITION: There are scattered areas of fibroglandular density. FINDINGS: Architectural distortion is present in the middle third of the upper outer quadrant of the right breast at the site of prior excisional biopsy. There is no evidence of suspicious mass, calcifi cation, or architectural distortion to suggest malignancy in either breast. There has been no suspici ous interval change. IMPRESSION: 1. No mammographic evidence of malignancy. 2. Recommend routine screening mammography in one year. BI-RADS Category 2: Benign finding(s). Reviewed, dictated and finalized at location A.
== END ==
PROVIDERS: PCP Internal Medicine; Visit Provider Internal Medicine
DX: Z12.31 Encounter for screening mammogram for malignant neoplasm of breast (principal)
CPT/HCPCS: 77063; 77067

== ENCOUNTER 2020-09-05 16:07 | Outpatient (CLI) | payer MEDICARE, OTHER, SELFPAY ==
[2020-09-05 16:33] LABS: Alanine Aminotransferase 88 U/L (4-35); Albumin Level 3.9 g/dL (3.5-5.1); Alkaline Phosphatase 81 U/L (38-126); Anion Gap 3 mmol/L (8-16); Aspartate Amino Transferase 40 U/L (14-36); Bilirubin,Total 0.3 mg/dL (0.2-1.3); Blood Urea Nitrogen 16 mg/dL (7-17); Calcium 8.7 mg/dL (8.4-10.2); Carbon Dioxide 35 mmol/L (22-30); Chloride 103 mmol/L (98-107); Estimated Glomerular Filt Rate > 60; Glucose 95 mg/dL (65-105); Sodium 141 mmol/L (137-145)
== END 2020-09-05 16:08 | disposition home or self-care (01) ==
PROVIDERS: PCP Internal Medicine; Visit Provider Physician Assistant
DX: K29.70 Gastritis, unspecified, without bleeding (principal); R74.8 Abnormal levels of other serum enzymes
CPT/HCPCS: 36415; 80053

== ENCOUNTER → 2020-09-22 10:27 | Outpatient (CLI) | payer MEDICARE, OTHER, SELFPAY ==
--- NOTE | ~2020-09-22 | DEXA_ITS ---
Bone Density Report Name: Sharon Heller Age: 69 Sex: Female Ethnicity: White Date of : 1950 Indication: postmenopausal; screening for osteoporosis; inflammatory bowel disease; Referring Provider: ANIVAL*, RAVEN Jones Study: Bone densitometry was performed. Exam Date: September 22, 2020 Accession number: [id number] Bone Density: Region BMD T-score Z-score Classification AP Spine (L1-L4) 1.154 1.0 3.1 Normal Femoral Neck (Left) 0.722 -1.1 0.6 Osteopenia Total Hip (Left) 0.946 0.0 1.5 Normal Femoral Neck (Right) 0.820 -0.3 1.5 Normal Total Hip (Right) 0.931 -0.1 1.4 Normal Total Hip Mean 0.939 -0.1 1.5 Normal World Health Organization criteria for BMD impression classify patients as: Normal (T-score at or above -1.0), Osteopenia (T-score between -1.0 and -2.5), or Osteoporosis (T-score at or below -2.5). 10-year Fracture Risk(1): Major Osteoporotic Fracture 8.9% Hip Fracture 0.9% Reported Risk Factors: [place] (), Neck BMD=0.722, BMI=27.7 (1) FRAX(R) Version 3.08. Fracture probability calculated for an untreated patient. Fracture probability may be lower if the patient has received treatment. Previous Exams: Region Exam Age BMD T-score BMD Change BMD Change Date g/cm2 vs Baseline vs Previous AP Spine(L1-L4) 09/22/2020 69 1.154 1.0 -0.079* 0.036* 01/22/2016 65 1.117 0.6 -0.115* -0.035* 01/19/2014 63 1.152 1.0 -0.080* 0.028* 01/30/2011 60 1.125 0.7 -0.108* -0.108* 09/12/2008 57 1.232 1.7 Total Hip(Left) 09/22/2020 69 0.946 0.0 -0.074* -0.023 01/22/2016 65 0.969 0.2 -0.052* -0.017 01/19/2014 63 0.986 0.4 -0.035* -0.044* 01/30/2011 60 1.030 0.7 0.010 0.010 09/12/2008 57 1.021 0.6 Total Hip(Right) 09/22/2020 69 0.931 -0.1 -0.048* -0.046* 01/22/2016 65 0.977 0.3 -0.003 -0.007 01/19/2014 63 0.983 0.3 0.004 -0.017 01/30/2011 60 1.001 0.5 0.021 0.021 09/12/2008 57 0.979 0.3 *Denotes significance at 95% confidence level, LSC for AP Spine = 0.022 g/cm2, LSC for Total Hip = 0.027 g/cm2 Clinical Information Provided by Patient: Has used the following medications: Vitamin D, Calcium Has the following medical conditions: Inflammatory bowel diseases Patient maximum height was 66 Menopause Age: 48 [place]
== END ==
PROVIDERS: PCP Internal Medicine; Visit Provider Internal Medicine
DX: Z78.0 Asymptomatic menopausal state (principal); M81.0 Age-related osteoporosis without current pathological fracture; M85.852 Other specified disorders of bone density and structure, left thigh
CPT/HCPCS: 77080

== ENCOUNTER 2020-10-22 04:04 | Observation (INO) | payer MEDICARE, OTHER, SELFPAY ==
[2020-10-22] VITALS (15 sets, daily range): BP systolic 95–120; BP diastolic 59–76; PULSE 67–88; RESP 12–18; TEMP 36–36.3; O2SAT 95–100; BMI 26.5
--- NOTE | ~2020-10-22 | MR_ITS ---
EXAMINATION: MR MRCP wo/w con/w 3D wo ind DATE: 10/22/2020 13:08 INDICATION: Epigastric pain, possible choledocholithiasis TECHNIQUE: Magnetic resonance imaging (MRI) of the abdomen was performed without and with intravenous contrast. Sequences included coronal T2-weighted SS-FSE ARC, coronal T2-weighted FS SS-FSE, coronal T2-weighted 2D FS FIESTA, Water:Coronal LAVA-Flex, sagittal T2-weighted SS-FSE ARC, axial SSFSE ARC, axial 3D DualEcho, axial DWI B=600, axial T1-weighted LAVA, FAT:Coronal LAVA-Flex, and coronal in and opposed phase LAVA-Flex. Thick-slab T2-weighted FRFSE-XL images were obtained for magnetic resonance cholangiopancreatography (MRCP). Maximum intensity projection 3-D reconstructions of the volumetric data were created by the technologist. Postcontrast sequences included a time course of axial T1-weig hted LAVA, FAT:Coronal LAVA-Flex, coronal in and opposed phase LAVA-Flex, and Water:Coronal LAVA-Flex . COMPARISON: 08/28/2020 CONTRAST: Multihance, 14 cc FINDINGS: ABDOMEN MRI: Cysts of the liver measure up to 10 mm in liver segment VII. The spleen, pancreas, and a drenal glands are normal. A small amount of chronic fluid is seen in the gallbladder fossa adjacent t o the gallbladder. A few stones are seen in the dependent portion of the gallbladder. The right kidne y is unremarkable. Cysts in the left kidney measure up to 12 mm. There are no dilated loops of bowel. No pathologically enlarged abdominal lymph nodes are identified. ABDOMEN MRCP: The mildly enlarged common bile duct measures up to 10 mm which is stable compared to t he prior MRCP. No biliary stones or stricture are identified. The pancreatic duct is normal in course and caliber. IMPRESSION: 1. Stable mildly enlarged common bile duct without biliary stones or stricture identified. 2. Cholelithiasis. Reviewed, dictated and finalized at location A.
--- NOTE | ~2020-10-22 | CT_ITS ---
EXAMINATION: CT abdomen pelvis w con INDICATION: Epigastric pain TECHNIQUE: Computed tomographic images of the abdomen and pelvis were obtained after the administrati on of 100 cc of Omnipaque 350 intravenous contrast. The dose-length product (DLP) was 473.27 mGy-cm. Automated exposure control and iterative reconstruction technique were employed. COMPARISON: 08/27/2020 FINDINGS: Minimal dependent atelectasis is present in the lung bases. The heart size is normal. Cysts of the liver measure up to 12 mm in the right hepatic lobe. The spleen, pancreas, gallbladder, and a drenal glands are normal. There is unchanged mild intrahepatic and extrahepatic biliary dilatation. C ysts of the left kidney measure up to 9 mm. The right kidney is unremarkable. No pathologically enlar ged abdominal or pelvic lymph nodes are identified. There is no free intraperitoneal gas or evidence of bowel obstruction. Colonic diverticulosis is present without evidence of diverticulitis. There is moderate lumbar spondylosis. IMPRESSION: 1. Unchanged mild intrahepatic and extrahepatic biliary dilatation. Reviewed, dictated and finalized at location A.
--- NOTE | 2020-10-22 04:14 | ED.ABDPAIN ---
HPI - Abdominal Pain General Chief Complaint: Abdominal Pain <Gulshan Dominguez MD - Last Filed: 10/22/20 17:27> Stated Complaint: gallbladder attack <Gulshan Dominguez MD - Last Filed: 10/22/20 17:27> Time Seen by Provider: 10/22/20 04:12 <Gulshan Dominguez MD - Last Filed: 10/22/20 17:27> History of Present Illness HPI narrative: epigastric pain since about 1900 yesterday. Started about 1 hour after eating dinner at [employer]. Located in the epigastrium and radiates throughout the upper abdomen. Associated with 1 episode of vomiting, which improved the pain slightly. She was seen here for the same symptoms in july. At that time it was suspected that she passed some gall stones. She was offered the chance to have her gall bladder taken out and she choose to wait. No fever, chills, diarrhea, dysuria, hematuria. <Gulshan Dominguez MD - Last Filed: 10/22/20 17:27> Related Data Home Medications: Home Medications Medication Instructions Recorded Confirmed bupropion HCl 300 mg PO QAM 08/27/20 10/22/20 zolpidem 10 mg PO HS 08/27/20 10/22/20 famotidine 20 mg PO QAM AND QHS 10/22/20 10/22/20 <Gulshan Dominguez MD - Last Filed: 10/22/20 17:27> Allergies/Adverse Reactions: Allergies Allergy/AdvReac Type Severity Reaction Status Date / Time naproxen Allergy Unknown Rash Verified 10/22/20 09:51 <Gulshan Dominguez MD - Last Filed: 10/22/20 17:27> Review of Systems Review of Systems: All systems reviewed & are unremarkable except as noted in HPI and below <Gulshan Dominguez MD - Last Filed: 10/22/20 17:27> Constitutional: Constitutional: Denies chills and Denies fever(s) <Gulshan Dominguez MD - Last Filed: 10/22/20 17:27> ENT: Reports system reviewed and no additional complaints, except as documented <Gulshan Dominguez MD - Last Filed: 10/22/20 17:27> Cardiovascular: Cardiovascular: Denies chest pain <Gulshan Dominguez MD - Last Filed: 10/22/20 17:27> Respiratory: Respiratory: Denies dyspnea <Gulshan Dominguez MD - Last Filed: 10/22/20 17:27> Gastrointestinal: Gastrointestinal: Reports abdominal pain, Reports nausea and Reports vomiting <Gulshan Dominguez MD - Last Filed: 10/22/20 17:27> Genitourinary: Genitourinary: Reports no additional female genitourinary complaints <Gulshan Dominguez MD - Last Filed: 10/22/20 17:27> [facility] Past Medical History Medical History: Medical History Colon cancer screening Depression with anxiety Insomnia Nausea and vomiting in adult <Gulshan Dominguez MD - Last Filed: 10/22/20 17:27> Surgical History Surgical History: Surgical History H/O emergency section History of dilatation and curettage Hx of cataract extraction Bilateral S/P cervical spinal fusion C5 - C6 <Gulshan Dominguez MD - Last Filed: 10/22/20 17:27> Family History Family History: Family History Son Accident Father COPD (chronic obstructive pulmonary disease) Mother COPD (chronic obstructive pulmonary disease) Cervical cancer <Gulshan Dominguez MD - Last Filed: 10/22/20 17:27> Social History Social History: Social History Social History: 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 She is to her who is also a teacher. They had 3 children but the oldest son at the age of 19. She had all 3 boys. She has not drink alcohol in many years. She has never smoked. She does not use any marijuana or illicit drug. The patient desires to have her is a durable power area plant manager for healthcare. She desires to be a full code. Smoking status: Never smoker Second hand tobacco smoke exposure: No Alcohol intake: never Substance use: never
--- NOTE | 2020-10-22 04:26 | ECG_ITS ---
Measurements Intervals [place] Rate: 73 P: 74 [place]: 171 QRS: -8 QRSD: 81 T: 48 QT: 384 QTc: 424 Interpretive Statements SINUS RHYTHM INCOMPLETE RIGHT BUNDLE BRANCH BLOCK LOW QRS VOLTAGE IN LIMB LEADS BORDERLINE ECG Electronically Signed On 10-22-2020 6:25:53 CDT by Michael Lynch D.O.
[2020-10-22] MEDS: MORPHINE SULFATE (*CRX) 4 MG/ML INJ IV PUSH (04:56)
[2020-10-22] MEDS: ONDANSETRON INJ 4 MG/2 ML VIAL (05:08)
[2020-10-22 05:36] LABS: Basophils Percent Auto 0.4 % (0.2-1.2); Eosinophils Percent Auto 0.2 % (0-4.4); Hemoglobin 12.6 g/dL (12.0-15.0); Immature Granulocyte Absolute 0.03 K/mm3 (0.00-0.031); Immature Granulocyte Percent A 0.5 % (0-0.5); Lymphocytes Percent Auto 12.4 % (18.3-44.2); Mean Corpuscular HGB Conc 33.2 g/dl (32-36); Mean Corpuscular Hemoglobin 31.7 pg (26-34); Mean Corpuscular Volume 95.5 fl (80-100); Monocytes Absolute Auto 0.3 K/mm3 (0.1-0.6); Monocytes Percent Auto 4.4 % (2.6-8.5); Neutrophils Absolute Auto 4.7 K/mm3 (1.3-6.7); Neutrophils Percent Auto 82.1 % (45.5-73.1); Platelet Count Result 185 k/mm3 (150-375); Red Blood Count 3.98 M/mm3 (4.2-5.4); Red Cell Distribution Width 12.3 % (11.5-14.5); White Blood Count 5.7 K/mm3 (4.5-10.0)
[2020-10-22 05:38] LABS: Alanine Aminotransferase 167 U/L (4-35); Albumin Level 3.8 g/dL (3.5-5.1); Alkaline Phosphatase 91 U/L (38-126); Anion Gap 4 mmol/L (8-16); Aspartate Amino Transferase 444 U/L (14-36); Bilirubin,Total 0.8 mg/dL (0.2-1.3); Blood Urea Nitrogen 13 mg/dL (7-17); Calcium 8.7 mg/dL (8.4-10.2); Carbon Dioxide 30 mmol/L (22-30); Chloride 102 mmol/L (98-107); Estimated CRCL calculation 48 ml/min; Estimated Glomerular Filt Rate > 60; Glucose 125 mg/dL (65-105); Lipase 63 U/L (23-300); Potassium 3.8 mmol/L (3.4-5.0); Sodium 136 mmol/L (137-145)
--- NOTE | 2020-10-22 09:50 | ADMGEN ---
This patient, Sharon Heller, was admitted to 2 Medical Room 242-. Patient/family oriented to hospital policies and general routines including ID bracelet, bed and alarms, visiting hours, pain management, procedures, bathroom and other care routines, personal items, smoking policy, room service/diet, and visiting hours. Information on how to activate the Rapid Response Team has been discussed. Patient/Family are encouraged to report perceived risks to care and to ask questions if they do not understand what they are told or what they should do.
--- NOTE | 2020-10-22 10:20 | WPDCN ---
Assessment and Plan Assessment and plan (1) Choledocholithiasis: Code(s): K80.50 - Calculus of bile duct without cholangitis or cholecystitis without obstruction Status: Acute Assessment and Plan: await GI input, will likely need MRCP for further evaluation, exam largely benign, trend labs, discussed interval cholecystectomy and pt would like to proceed when appropriate HPI Data of Consult Date/Time: 10/22/20 10:20 Requesting Physician: Tomas Parks MD Primary Care Provider: Adriano Angel, MD Consult Narrative Narrative: Sharon Heller is a 69 year old female presenting to ED c/o severe epigastric/RUQ abd pain. Pt reports associated nausea, bloating, and poor appetite. Pt reports she had similar episode in July and at that time had choledocholithiasis. Pt reports she was offered interval cholecystectomy but wished to wait at that time. Review of Systems Constitutional: Constitutional: Reports anorexia, Denies chills, Reports fatigue, Denies fever(s), Denies headache(s), Denies increased appetite, Reports lethargy, Denies malaise, Reports poor appetite, Denies weakness, Denies weight gain and Denies weight loss Eyes: Eyes: Reports no additional eye complaints ENT: Reports system reviewed and no additional complaints, except as documented Cardiovascular: Cardiovascular: Reports no additional cardiovascular complaints Respiratory: Respiratory: Reports no additional respiratory complaints Gastrointestinal: Gastrointestinal: Reports as per HPI, Reports abdominal pain, Reports bloating, Denies constipation, Reports GI cramping, Reports early satiety, Reports heartburn, Denies fecal incontinence, Denies diarrhea, Reports nausea and Denies vomiting Genitourinary: Genitourinary: Reports no additional female genitourinary complaints Musculoskeletal: Musculoskeletal: Reports no additional musculoskeletal complaints Integumentary/Breasts: Skin/Breast: Reports system reviewed and no additional complaints, except as docu Neurologic: Reports system reviewed and no additional complaints, except as documented Psychiatric: Psychiatric: Reports no additional psychiatric complaints Endocrine: Endocrine: Reports no additional endocrine complaints Hematologic/Lymphatic: Hematologic/Lymphatic: Reports no additional hematologic/lymphatic complaints Allergic/Immunologic: Allergic/Immunologic: Reports no additional allergic/immunologic complaints PMFSH Past Medical History Medical History Colon cancer screening Depression with anxiety Insomnia Nausea and vomiting in adult Surgical History Surgical History H/O emergency section History of dilatation and curettage Hx of cataract extraction Bilateral S/P cervical spinal fusion C5 - C6 Family History Family History Son Accident Father COPD (chronic obstructive pulmonary disease) Mother COPD (chronic obstructive pulmonary disease) Cervical cancer Social History Social History Social History: 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 She is to her who is also a teacher. They had 3 children but the oldest son at the age of 19. She had all 3 boys. She has not drink alcohol in many years. She has never smoked. She does not use any marijuana or illicit drug. The patient desires to have her is a durable power assistant city attorney for healthcare. She desires to be a full code. Smoking status: Never smoker Second hand tobacco smoke exposure: No Alcohol intake: never Substance use: never Gender identity (if verbalized by the patient): Female Sexual Orientation (if Verbalized by the Patient): Straight or Heterosexual Spiritual care concerns: No Meds Home Medicat
[2020-10-22] MEDS: SODIUM CHLORIDE 0.9% IV 1,000 ML 125 ML IV CONT ×2 (10:52→19:26)
--- NOTE | 2020-10-22 13:50 | PM.IMHP ---
H&P: HPI History of Present Illness Date/Time: 10/22/20 13:50 this is a 69 year old female patient who was up all night with abdominal pain that started at 7:00 p.m. yesterday. The patient stated that she was having epigastric discomfort that went all the way through to her back between her shoulder blades. The patient vomited a couple times during the night. She vomited today as well. This pain developed about an hour after she ate a cracker barrel she said she had a fried pork chop. The patient was just here in July with similar symptoms and it was suspected that the patient passed some gallstones at that time. This is the 1st time that she has had any problems since July. The patient had no fever or chills. Here and she said that the pain subsided after that. The patient just came back from having MRCP. Surgery has been consulted and has already seen the patient. CT scan of the abdomen and MRCP have been taken but not red. The patient stated she was told that she has some stones in the common bile duct. AST is 444 ALT is 167. Patient was given morphine and Zofran in the emergency room. Patient is being admitted to observation status on the date of service of 10/22/2020. Chief Complaint: Abdominal pain Review of Systems Review of Systems: All systems reviewed & are unremarkable except as noted in HPI and below Constitutional: Constitutional: Reports as per HPI and Reports no additional constitutional complaints Eyes: Eyes: Reports as per HPI and Reports no additional eye complaints ENT: Reports system reviewed and no additional complaints, except as documented and Reports Normal hearing present Cardiovascular: Cardiovascular: Reports no additional cardiovascular complaints Respiratory: Respiratory: Reports no additional respiratory complaints and Reports no additional respiratory complaints Gastrointestinal: Gastrointestinal: Reports as per HPI and Reports no additional gastrointestinal complaints Musculoskeletal: Musculoskeletal: Reports no additional musculoskeletal complaints Integumentary/Breasts: Skin/Breast: Reports system reviewed and no additional complaints, except as docu and Reports as per HPI Neurologic: Reports system reviewed and no additional complaints, except as documented, Reports as per HPI and Reports Normal hearing present Psychiatric: Psychiatric: Reports no additional psychiatric complaints and Reports as per HPI Endocrine: Endocrine: Reports no additional endocrine complaints Hematologic/Lymphatic: Hematologic/Lymphatic: Reports no additional hematologic/lymphatic complaints Allergic/Immunologic: Allergic/Immunologic: Reports no additional allergic/immunologic complaints PMFSH Past Medical History Medical History Colon cancer screening Depression with anxiety Insomnia Nausea and vomiting in adult Surgical History Surgical History H/O emergency section History of dilatation and curettage Hx of cataract extraction Bilateral S/P cervical spinal fusion C5 - C6 Family History Family History Son Accident Father COPD (chronic obstructive pulmonary disease) Mother COPD (chronic obstructive pulmonary disease) Cervical cancer Social History Social History Social History: 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 She is to her who is also a teacher. They had 3 children but the oldest son at the age of 19. She had all 3 boys. She has not drink alcohol in many years. She has never smoked. She does not use any marijuana or illicit drug. The patient desires to have her is a durable power employment law attorney for healthcare. She desires to be a full code. Smoking status: Never smoker Second hand tobacco smoke exposu
[2020-10-22] MEDS: ZOLPIDEM TARTRATE (*CRX) 5 MG TABLET 10 MG PO (21:59)
[2020-10-23] MEDS: SODIUM CHLORIDE 0.9% IV 1,000 ML 125 ML IV CONT ×2 (03:54→12:30)
[2020-10-23 05:18] VITALS: BP 98/46; PULSE 69; RESP 16; TEMP 36.7; O2SAT 98
[2020-10-23 05:18] LABS: Basophils Percent Auto 0.4 % (0.2-1.2); Eosinophils Absolute Auto 0.1 K/mm3 (0-0.3); Eosinophils Percent Auto 2.8 % (0-4.4); Hematocrit 33.2 % (37.0-47.0); Hemoglobin 10.8 g/dL (12.0-15.0); Immature Granulocyte Absolute 0.01 K/mm3 (0.00-0.031); Immature Granulocyte Percent A 0.4 % (0-0.5); Lymphocytes Absolute Auto 1.01 K/mm3 (0.9-3.2); Lymphocytes Percent Auto 35.9 % (18.3-44.2); Mean Corpuscular HGB Conc 32.5 g/dl (32-36); Mean Corpuscular Hemoglobin 31.4 pg (26-34); Mean Corpuscular Volume 96.5 fl (80-100); Monocytes Absolute Auto 0.3 K/mm3 (0.1-0.6); Monocytes Percent Auto 9.3 % (2.6-8.5); Neutrophils Absolute Auto 1.4 K/mm3 (1.3-6.7); Neutrophils Percent Auto 51.2 % (45.5-73.1); Platelet Count Result 131 k/mm3 (150-375); Red Blood Count 3.44 M/mm3 (4.2-5.4); Red Cell Distribution Width 12.6 % (11.5-14.5); White Blood Count 2.8 K/mm3 (4.5-10.0)
[2020-10-23 05:19] LABS: Lactic Acid Reflex 0.5 mmol/L (0.7-2.1)
[2020-10-23 05:38] LABS: Alanine Aminotransferase 192 U/L (4-35); Albumin Level 2.9 g/dL (3.5-5.1); Alkaline Phosphatase 69 U/L (38-126); Anion Gap -2 mmol/L (8-16); Aspartate Amino Transferase 179 U/L (14-36); Bilirubin,Total 0.2 mg/dL (0.2-1.3); Blood Urea Nitrogen 5 mg/dL (7-17); Carbon Dioxide 30 mmol/L (22-30); Chloride 110 mmol/L (98-107); Estimated CRCL calculation 54 ml/min; Estimated Glomerular Filt Rate > 60; Glucose 86 mg/dL (65-105); Lipase 44 U/L (23-300); Potassium 3.5 mmol/L (3.4-5.0); Sodium 138 mmol/L (137-145)
[2020-10-23 08:45] VITALS: O2SAT 98
--- NOTE | 2020-10-23 09:51 | WPDGICN ---
Assessment and Plan Assessment and plan (1) Cholelithiasis: Code(s): K80.20 - Calculus of gallbladder without cholecystitis without obstruction Status: Acute Assessment and Plan: MRCP did not reveal strictures or stones in bile duct, stable mild dilated bile duct. Also normal pancreatic duct. no need to proceed with ercp liver enzymes trending down she will need lap cholecystectomy (second hospitalization with symptomatic biliary colic), MRCP showed cholelithiasis timing by surgery (2) Biliary colic: Code(s): K80.50 - Calculus of bile duct without cholangitis or cholecystitis without obstruction Status: Acute (3) Upper abdominal pain: Code(s): R10.10 - Upper abdominal pain, unspecified Status: Acute (4) Elevated liver enzymes: Code(s): R74.8 - Abnormal levels of other serum enzymes Status: Acute Assessment and Plan: trending down, continue to monitor (5) Nausea and vomiting in adult: Code(s): R11.2 - Nausea with vomiting, unspecified Status: Acute Assessment and Plan: resolved now recent egd showed mild gastritis probably related to biliary colic GI Consult Note Consult date/time: 10/23/20 09:51 Reason for consult: dilated bile duct, biliary colic HPI: Sharon Heller is a 69 year old female who I met during recent hospitalization because upper abdominal pain and biliary colic with elevated liver enzymes, had MRCP that did not show biliary stones, managed medically, also I performed EGD that showed mild gastritis. This time she is here with similar symptoms, severe pain in epigastric with radiation to both sides and also back, this was after eating at [employer]. She also had nausea and vomiting which is resolved now, again elevated liver enzymes and admitted to hospital. AST is 444 ALT is 167 with normal bili, transaminases trending down. She had new MRCP reviewed, stable mildly enlarged common bile duct without biliary stones or stricture identified and cholelithiasis. She says that this is the second episode since last admission. Review of Systems Constitutional: Constitutional: Denies headache(s) and Denies weakness Eyes: Eyes: Denies blurry vision ENT: Reports Normal hearing present, Denies headache(s) and Denies neck pain Cardiovascular: Cardiovascular: Denies chest pain and Denies dyspnea Respiratory: Respiratory: Denies dyspnea Gastrointestinal: Gastrointestinal: Reports no additional gastrointestinal complaints Genitourinary: Genitourinary: Denies dysuria Musculoskeletal: Musculoskeletal: Denies neck pain Integumentary/Breasts: Skin/Breast: Denies dry skin Neurologic: Reports Normal hearing present, Denies headache(s) and Denies weakness Psychiatric: Psychiatric: Denies anxiety Endocrine: Endocrine: Denies change in body appearance Hematologic/Lymphatic: Hematologic/Lymphatic: Denies easy bleeding Allergic/Immunologic: Allergic/Immunologic: Denies urticaria PMFSH Past Medical History Medical History (Updated 10/23/20 @ 11:24 by Filiberto Paez MD) Biliary colic Cholelithiasis Colon cancer screening Depression with anxiety Insomnia Nausea and vomiting in adult Upper abdominal pain Surgical History Surgical History H/O emergency section History of dilatation and curettage Hx of cataract extraction Bilateral S/P cervical spinal fusion C5 - C6 Family History Family History Son Accident Father COPD (chronic obstructive pulmonary disease) Mother COPD (chronic obstructive pulmonary disease) Cervical cancer Social History Social History Social History: 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 She is to her who is also a teacher. They had 3 children but the oldest son
[2020-10-23 10:34] VITALS: RESP 16; O2SAT 98
--- NOTE | 2020-10-23 11:00 | PM.IMPN ---
Progress Note: A&P Assessment and Plan (1) Choledocholithiasis: Code(s): K80.50 - Calculus of bile duct without cholangitis or cholecystitis without obstruction Status: Acute Assessment and Plan: Patient presents with epigastric abdominal pain, nausea, vomiting that began after dinner last evening. Similar episode in July. CT abd shows unchanged mild intrahepatic and extrahepatic biliary dilatation. MRCP yesterday shows cholelithiasis with stable mildly enlarged common bile duct without biliary stones or stricture identified. GI consulted - appreciate recommendations. Discussed with Dr. Tripathi - no plans for ERCP or any other procedure today since no biliary stones were notified. General surgery consulted - appreciate recommendations. She has been evaluated by Dr. Lott and tells me she may undergo lap cholecystectomy either tomorrow or outpatient. Will defer this decision to general surgery. Continue clear liquid diet for now pending surgery plan. Continue IV hydration and PRN antiemetics. (2) Elevated liver enzymes: Code(s): R74.8 - Abnormal levels of other serum enzymes Status: Acute Assessment and Plan: May have passed a CBD stone. LFTs elevated but trending down today. Continue to monitor. (3) Abdominal pain: Qualifiers: Abdominal location: right upper quadrant Qualified Code(s): R10.11 - Right upper quadrant pain Code(s): R10.9 - Unspecified abdominal pain Status: Acute Assessment and Plan: Secondary to above. Continue supportive care. (4) Depression with anxiety: Code(s): F41.8 - Other specified anxiety disorders Status: Chronic Assessment and Plan: Resume her home Wellbutrin. Subjective Date/time seen: 10/23/20 1045 Interval history: Ms. Heller is a pleasant 69yo F admitted for biliary colic with cholelithiasis. She is feeling better this morning. She reports no abdominal pain today. Was vomiting yesterday but denies nausea or vomiting today. She denies chest pain or shortness of breath. Offers no complaints. Review of Systems Review of Systems: All systems reviewed & are unremarkable except as noted in HPI and below Exam Narrative: Exam Narrative: General: Female resting comfortably sitting up in bed in no acute distress. HEENT: Normocephalic, EOMI, oral mucosa moist. Cardiovascular: Rate and rhythm are regular. Respiratory: Lungs clear to auscultation bilaterally. Respirations even and non-labored. Tolerating room air. Abdomen: Soft, non-tender, non-distended, bowel sounds present. Extremities: Peripheral pulses intact. No edema or pain to palpation. Neuro: Awake and alert; answering questions appropriately. No focal neurological deficits. Speech is clear. Objective Data Vital Signs Vital Signs: Last Vital Signs Temp 98.1 F 10/23/20 05:18 Pulse 69 10/23/20 05:18 Resp 16 10/23/20 10:34 BP 98/46 L 10/23/20 05:18 Pulse Ox 98 10/23/20 10:34 Intake/Output Intake/Output: Intake & Output 10/20/20 10/21/20 10/22/20 10/23/20 23:59 23:59 23:59 23:59 Intake Total 1480 1830 Output Total 550 Balance 930 1830 Meds/Results Medications: Active Medications Generic Name Dose Route Start Last Admin Trade Name Freq PRN Reason Stop Dose Admin Sodium Chloride 1,000 mls @ 125 mls/hr 10/22/20 08:10 10/23/20 03:54 Normal Saline Iv IV CONT 125 mls/hr .Q8H CLAY Administration Lorazepam 0.5 mg 10/22/20 14:31 Lorazepam Inj (*Crx) 2 Mg/Ml Vial IV PUSH Q6H PRN Anxiety Morphine Sulfate 2 mg 10/22/20 14:32 Morphine Sulfate (*Crx) 2 Mg/Ml Inj IV PUSH Q4H PRN Pain Rated 7-10 Ondansetron HCl 4 mg 10/22/20 08:08 Ondansetron Inj 4 Mg/2 Ml Vial IV PUSH Q4H PRN Nause
[2020-10-23 14:00] VITALS: BP 110/62; PULSE 82; RESP 18; TEMP 36.7; O2SAT 94
--- NOTE | 2020-10-23 14:36 | PM.PNGS ---
Progress Note: A&P Assessment and Plan (1) Choledocholithiasis: Code(s): K80.50 - Calculus of bile duct without cholangitis or cholecystitis without obstruction Status: Acute Assessment and Plan: stone has likely passed, MRCP reviewed, labs normalizing, exam completely benign, advance to low fat diet, if josé miguel ok to dc home and plans for interval cholecystectomy on am Subjective Subjective Date/Time Seen: 10/23/20 14:36 Pt reports she feels much better. No further pain, N/V. Pt josé miguel clears s issue. Review of Systems Review of Systems: All systems reviewed & are unremarkable except as noted in HPI and below Exam Const: General: cooperative and comfortable Orientation/consciousness: patient oriented x3 Resp: Effort & Inspection: normal respiratory effort Auscultation: clear to auscultation bilaterally Cardio: Rate: regular rate Rhythm: regular rhythm GI: Inspection: normal to inspection and non-distended GI Palp: Yes Soft to palpation and No Tenderness to palpation present (GI) Objective Data Vital Signs Vital Signs: Vital Signs - 24 hr 10/22/20 20:20 10/23/20 05:18 10/23/20 08:45 Temperature 36.1 C L 36.7 C Pulse Rate 77 69 Respiratory Rate 16 16 Blood Pressure 106/59 L 98/46 L Pulse Oximetry 96 98 98 10/23/20 10:34 Temperature Pulse Rate Respiratory Rate 16 Blood Pressure Pulse Oximetry 98 Intake/Output Intake/Output: Intake & Output 10/20/20 10/21/20 10/22/20 10/23/20 23:59 23:59 23:59 23:59 Intake Total 1480 3220 Output Total 550 Balance 930 3220 Meds/Results Medications: Active Medications Generic Name Dose Route Start Last Admin Trade Name Freq PRN Reason Stop Dose Admin Sodium Chloride 1,000 mls @ 125 mls/hr 10/22/20 08:10 10/23/20 12:31 Normal Saline Iv IV CONT 0 mls/hr .Q8H CLAY Infusion Lorazepam 0.5 mg 10/22/20 14:31 Lorazepam Inj (*Crx) 2 Mg/Ml Vial IV PUSH Q6H PRN Anxiety Morphine Sulfate 2 mg 10/22/20 14:32 Morphine Sulfate (*Crx) 2 Mg/Ml Inj IV PUSH Q4H PRN Pain Rated 7-10 Ondansetron HCl 4 mg 10/22/20 08:08 Ondansetron Inj 4 Mg/2 Ml Vial IV PUSH Q4H PRN Nausea Zolpidem Tartrate 10 mg 10/22/20 21:00 10/22/20 21:59 Zolpidem Tartrate (*Crx) 5 Mg Tablet PO 10 mg HS CLAY Administration Radiology Results: ITS Impressions Abdomen/Pelvis CT 10/22/20 16:01 IMPRESSION: 1. Unchanged mild intrahepatic and extrahepatic biliary dilatation. MRCP 10/22/20 19:24 IMPRESSION: 1. Stable mildly enlarged common bile duct without biliary stones or stricture identified. 2. Cholelithiasis. Labs Labs: Laboratory Results - last 24 hr 10/23/20 10/23/20 10/23/20 04:42 04:42 04:42 WBC 2.8 L RBC 3.44 L Hgb 10.8 L Hct 33.2 L MCV 96.5 MCH 31.4 MCHC 32.5 RDW 12.6 Plt Count 131 L MPV 10.0 Immature Gran % (Auto) 0.4 Neut % (Auto) 51.2 Lymph % (Auto) 35.9 [place] % (Auto) 9.3 H Eos % (Auto) 2.8 Baso % (Auto) 0.4 Lymph # (Auto) 1.01 [place] # (Auto) 0.3 Eos # (Auto) 0.1 Baso # (Auto) 0.0 Abs Immat Gran (auto) 0.01 Absolute Neuts (auto) 1.4 Absolute Nucleated RBC 0.0 Nucleated RBC % 0.0 Sodium 138 Potassium 3.5 Chloride 110 H Carbon Dioxide 30 Anion Gap -2 L BUN 5 L D Creatinine 0.80 Estim Creat Clear Calc 54 Estimated GFR > 60 Glucose 86 Lactic Acid 0.5 L Calcium 8.0 L Magnesium 2.0 Total Bilirubin 0.2 AST 179 H ALT 192 H Alkaline Phosphatase 69 Total Protein 5.0 L Albumin 2.9 L Lipase 44 TSH (Reflex) 10/23/20 04:42 WBC RBC Hgb Hct MCV MCH MCHC RDW Plt Count MPV Immature Gran % (Auto) Neut % (Auto) Lymph % (Auto) [place] % (Auto) Eos % (Auto) Baso % (Auto) Lymph # (Auto) [place] # (Auto) Eos # (Auto) Baso # (Auto) Abs Immat Gran (auto) Absolute Neuts (auto) A
--- NOTE | 2020-10-23 15:01 | PM.DS ---
DS: Admitting Diagnosis Admitting Diagnosis Admitting Diagnosis: Abdominal pain, elevated LFTs DS: Discharge Diagnosis Discharge Diagnosis (1) Choledocholithiasis: Code(s): K80.50 - Calculus of bile duct without cholangitis or cholecystitis without obstruction Status: Acute Assessment and Plan: Date of Admission 10/22/20 Date of Discharge 10/23/20 Ms. Heller is a pleasant 69yo F who presented to the ED for evaluation of sudden onset epigastric abdominal pain, nausea, vomiting that began after dinner last evening. She was hospitalized late July for a similar episode. Imaging with abdominal CT demonstrates mild intrahepatic and extrahepatic biliary dilatation. MRCP demonstrated cholelithiasis with stable mildly enlarged common bile duct without biliary stones or stricture identified. She was again evaluated by Dr. Tripathi, gastroenterology, in addition to Dr. Lott from General surgery. She does wish to proceed with laparoscopic cholecystectomy, possible open due to her repeated symptoms however she was experiencing no abdominal pain today and tolerating a diet without nausea or vomiting. Due to OR scheduling, she will be scheduled for outpatient cholecystectomy 10/26/[address] Lott. She is hemodynamically stable for discharge today with instructions to follow-up with Dr. Lott's office for surgery this week. (2) Elevated liver enzymes: Code(s): R74.8 - Abnormal levels of other serum enzymes Status: Acute Assessment and Plan: May have passed a CBD stone. LFTs elevated but trending down today. Can continue to be monitored outpatient. (3) Abdominal pain: Qualifiers: Abdominal location: right upper quadrant Qualified Code(s): R10.11 - Right upper quadrant pain Code(s): R10.9 - Unspecified abdominal pain Status: Acute Assessment and Plan: Secondary to above. Continue supportive care. (4) Depression with anxiety: Code(s): F41.8 - Other specified anxiety disorders Status: Chronic Assessment and Plan: Resume her home Wellbutrin. DS: Summary Hospital Course Hospital Course: See above. Time Spent with Patient Time attestation: Total time spent providing and/or coordinating discharge services: 35 minutes. Exam Narrative: Exam Narrative: General: Female resting comfortably sitting up in bed in no acute distress. HEENT: Normocephalic, EOMI, oral mucosa moist. Cardiovascular: Rate and rhythm are regular. Respiratory: Lungs clear to auscultation bilaterally. Respirations even and non-labored. Tolerating room air. Abdomen: Soft, non-tender, non-distended, bowel sounds present. Extremities: Peripheral pulses intact. No edema or pain to palpation. Neuro: Awake and alert; answering questions appropriately. No focal neurological deficits. Speech is clear. DS: Data Data Completed and Pending Labs on day of discharge: Last Vital Signs Temp 98.1 F 10/23/20 05:18 Pulse 69 10/23/20 05:18 Resp 16 10/23/20 10:34 BP 98/46 L 10/23/20 05:18 Pulse Ox 98 10/23/20 10:34 ITS Impressions Abdomen/Pelvis CT 10/22/20 16:01 IMPRESSION: 1. Unchanged mild intrahepatic and extrahepatic biliary dilatation. MRCP 10/22/20 19:24 IMPRESSION: 1. Stable mildly enlarged common bile duct without biliary stones or stricture identified. 2. Cholelithiasis. Laboratory Tests 10/23/20 04:42 10/23/20 04:42 Discharge Plan Discharge Attending physician on discharge: Tomeka Uribe Consulting providers: Filiberto Paez ; Sandee Lott Discharging Clinician: Zahra Cross Anticipated Discharge Date/Time: 10/23/20 16:00 Patient Disposition: Home, Self-Care Activity: as
[2020-10-25 12:47] LABS: SARS-CoV-2 RNA PCR Negative
== END 2020-10-23 18:45 | disposition home or self-care (01) ==
LOC: ANHED 08:11 → ANH2MED 09:00
PROVIDERS: Emergency Medicine; Nurse Practitioner; Admitting Provider Internal Medicine; Emergency Provider Emergency Medicine; PCP Internal Medicine; Visit Provider Physician Assistant
DX: K80.50 Calculus of bile duct without cholangitis or cholecystitis without obstruction (principal); R74.8 Abnormal levels of other serum enzymes; R10.10 Upper abdominal pain, unspecified; R11.2 Nausea with vomiting, unspecified; F41.8 Other specified anxiety disorders; Z98.1 Arthrodesis status; Z20.822 Contact with and (suspected) exposure to COVID-19
CPT/HCPCS: 36415; 74177; 74183; 76376; 80053; 83605; 83690; 83735; 84443; 85025; 93005; 96361; 96374; 96375; 99285; A9270; A9577; C9803; G0378; J0131; J2270; J2405; J7030; Q9967; U0003; U0005

== ENCOUNTER 2020-10-24 14:45 | Outpatient (CLI) | payer MEDICARE, OTHER, SELFPAY ==
[2020-10-24 15:11] LABS: Amylase 42 U/L (30-110)
== END 2020-10-24 14:46 | disposition home or self-care (01) ==
LOC: ANHSURGERY 14:48
PROVIDERS: PCP Internal Medicine; Visit Provider Surgery
DX: K80.20 Calculus of gallbladder without cholecystitis without obstruction (principal); Z01.818 Encounter for other preprocedural examination
CPT/HCPCS: 36415; 82150; 86850; 86900; 86901

== ENCOUNTER 2020-10-26 00:49 | Day surgery (SDC) | payer MEDICARE, OTHER, SELFPAY ==
[2020-10-24 12:10] VITALS: BMI 26.2
[2020-10-26] VITALS (7 sets, daily range): BP systolic 96–107; BP diastolic 47–70; PULSE 64–78; RESP 14–20; TEMP 36.3–36.6; O2SAT 95–100
[2020-10-26] MEDS: ACETAMINOPHEN 500 MG TABLET 1000 MG PO (06:54)
[2020-10-26] MEDS: LACTATED RINGERS 1,000 ML 30 ML IV CONT ×2 (07:02→08:30)
--- NOTE | 2020-10-26 07:11 | WPDANESEPPF ---
Anes - Initial Pre Proc Eval Procedure: Operation Date: 10/26/20 07:30 Proposed Procedures p Laparoscopic Cholecystectomy - Sandee Lott MD Date/Time: 10/26/20 07:11 Surgeon: Sandee Lott MD Pre Op Diagnosis: choledocolthiasis Patient Data Age: 69 Gender: F Height: 5 ft 6 in Weight: 73.63 kg Allergies Allergy/AdvReac Type Severity Reaction Status Date / Time naproxen Allergy Unknown Rash Verified 10/26/20 06:40 adhesive tape AdvReac Rash Verified 10/26/20 06:40 Home Medications Medication Instructions Recorded Confirmed Type bupropion HCl [Wellbutrin XL] 300 mg PO QAM 08/27/20 10/26/20 History zolpidem 10 mg PO HS 08/27/20 10/26/20 History famotidine 20 mg PO QAM AND QHS 10/22/20 10/26/20 History Patient hx anesthesia problems: none Family hx anesthesia problems: none PMFSH Past Medical History Medical History Biliary colic Cholelithiasis Colon cancer screening Depression with anxiety Insomnia Nausea and vomiting in adult Upper abdominal pain Surgical History Surgical History H/O emergency section History of dilatation and curettage Hx of cataract extraction Bilateral S/P cervical spinal fusion C5 - C6 Family History Family History Son Accident Father COPD (chronic obstructive pulmonary disease) Mother COPD (chronic obstructive pulmonary disease) Cervical cancer Social History Social History Social History: 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 She is to her who is also a teacher. They had 3 children but the oldest son at the age of 19. She had all 3 boys. She has not drink alcohol in many years. She has never smoked. She does not use any marijuana or illicit drug. The patient desires to have her is a durable power litigation attorney associate for healthcare. She desires to be a full code. Smoking status: Never smoker Second hand tobacco smoke exposure: No Alcohol intake: never Substance use: never Substance use type: does not use Living arrangements: with family Gender identity (if verbalized by the patient): Female Spiritual care concerns: No Anes - Eval Final PreProcedure Day of Procedure 10/26/20 07:11 Patient weight: overweight Heart: regular rate and rhythm Lungs: clear to auscultation Airway: Mallampati scale class II Neurological: alert and oriented Last oral intake: >/= 8 hours ASA classification: II Emergent: no Anesthetic plan: proceed Anesthesia type and monitoring: general ETT and standard monitoring Informed Consent: The patient's anesthetic plan and its attendant risks and benefits were discussed with the patient/family/POA. Questions were solicited and answers provided to the satisfaction of the patient/family/POA.
--- NOTE | 2020-10-26 07:25 | SUR.PREOP ---
Dr. Lott aware of pt mild rash reaction with high doses of naproxen, no reaction with other NSAIDs. Clarified with pharmacy and they state there is possibility of rash with toradol. Dr. Lott ok with administering toradol. Patient educated and explained possible reaction and to notify staff of any issues. Circulating nurse Ang also aware of pt allergy and administration of toradol.
--- NOTE | 2020-10-26 07:27 | WPDHPUPDATE1 ---
History and Physical Update Update Date/Time: 10/26/20 07:27 History and Physical has been reviewed, including an updated exam of the patient. There are NO changes in the patient's condition. Risks, benefits, and alternatives have been discussed and questions answered. Patient agrees to proceed with procedure.
[2020-10-26] MEDS: KETOROLAC 15 MG/ML VIAL (*BKC) IV PUSH (07:28)
[2020-10-26] MEDS: ceFAZolin 2 GM/D5W 50 ML 2 GM/50 ML BAG IVPB (07:32)
[2020-10-26] MEDS: BUPIVACAINE/EPINEPHRINE 0.5% 10 ML VIAL 50 ML INFILTRATE (08:08)
--- NOTE | 2020-10-26 08:17 | PM.PROC ---
Procedure Note - Detailed Date of procedure: 10/26/20 Pre-op diagnosis: choledocolthiasis Post-op diagnosis: same Procedure performed: laparoscopic cholecystectomy Description of procedure: The patient was taken to the operating room placed in the supine position. After adequate induction of general anesthesia, the patient was prepped and draped in normal sterile fashion. A time-out was then performed to verify the patient's identity as well as the procedure being performed. I then made a 5 mm incision in the infraumbilical region. Through this, a Veress needle was placed into the peritoneal cavity and CO2 gas was then insufflated. After adequate pneumoperitoneum was achieved, the Veress needle was removed and a 5 mm optiview trocar was placed through this incision under direct visualization. I then placed the laparoscope through this trocar site and under direct visualization placed a further 12 mm subxiphoid port as well as 2 additional 5 mm ports in the right upper abdomen. The gallbladder was then identified and was noted to be moderately inflamed. I was able to place a grasper at the dome of the gallbladder and this was retracted anterior and cephalad up over the liver. A 2nd retractor was then placed at the infundibulum and retracted laterally, this allowed visualization of the triangle of Calot. I then was able to visualize the cystic duct in its entirety from its proximal insertion into the gallbladder, to its distal junction with the common hepatic/common bile duct junction. At this point, I carefully skeletonized the proximal cystic duct with the [place] dissector. I then clipped and transected the proximal cystic duct. Next I visualized the cystic artery. Again the artery was skeletonized, clipped, and transected. I then used the Bovie cautery to take down the peritoneal attachments of the gallbladder off the liver bed. Once the gallbladder specimen was completely detached, an endo-pouch was placed through the 12 mm port site. I then placed the gallbladder specimen into the Endo pouch and removed the endo-pouch from the 12 mm port site. The specimen will now be sent to pathology for further review. I then copiously irrigated the right upper quadrant. Hemostasis was noted in the liver bed, the clips were noted to be in good position on both the cystic duct stump and the cystic artery stump. No other pathology was noted in the right upper quadrant. I then moved the laparoscope to the subxiphoid port. No iatrogenic injury or other pathology was noted in the lower abdomen. I then closed the 12 mm trocar site under direct visualization using the Zenon cone and 0 Vicryl suture. At this point, the abdomen was desufflated and all ports removed. All port sites were then closed with 4.O Monocryl subcuticular sutures. Dermabond was placed on each incision. The patient tolerated the procedure well, was extubated in the operating room postoperative and will be transferred to the recovery room in stable condition. Implants: none Anesthesia: GETA Surgeon: Sandee Lott MD Estimated blood loss (mL): 5 Drains: No Packing: No Pathology: yes Complications: No immediate complications Condition: stable Disposition: PACU Findings: chronic cholecystitis, cholelithiasis
[2020-10-26] MEDS: fentaNYL CITRATE INJ (*CRX) 100 MCG/2 ML VIAL 25 MCG IV PUSH ×4 (08:35→08:47)
[2020-10-26] MEDS: oxyCODONE HCL (*CRX) 5 MG TAB IR PO (09:43)
== END 2020-10-26 10:25 | disposition home or self-care (01) ==
PROVIDERS: PCP Internal Medicine; Visit Provider Surgery
PROC: 0FT44ZZ Resection of Gallbladder, Percutaneous Endoscopic Approach (ICD-10-PCS; CPT 47562; principal; 2020-10-26 07:30)
DX: K80.10 Calculus of gallbladder with chronic cholecystitis without obstruction (principal); F41.8 Other specified anxiety disorders; Z98.1 Arthrodesis status
CPT/HCPCS: 47562; 88304; A9270; J0690; J1100; J1885; J2250; J2405; J2704; J2710; J3010; J7030; J7120

== ENCOUNTER 2021-01-03 20:27 | Emergency (ER) | payer MEDICARE, OTHER, SELFPAY ==
[2021-01-03 21:01] VITALS: BP 139/75; PULSE 99; RESP 16; TEMP 36.6; O2SAT 99
--- NOTE | 2021-01-03 22:10 | ED.WOUNDLAC ---
HPI - Wound/Laceration General Chief Complaint: Wound/Laceration Stated Complaint: sliced finger Time Seen by Provider: 01/03/21 21:21 Source: patient and family Mode of arrival: ambulatory Limitations: no limitations History of Present Illness HPI narrative: 70-year-old here with complaints of laceration to her left index finger sustained few hours ago. Patient states she was using rotor blade and accidentally cut her finger. She states that she is unable to stop the bleeding. Onset (ago): hour(s) (1) Place: home Patient tetanus UTD: Yes Context: accidental Associated symptoms: none Treatments prior to arrival: bandage Related Data Home Medications Medication Instructions Recorded Confirmed bupropion HCl [Wellbutrin XL] 300 mg PO QAM 08/27/20 11/08/20 zolpidem 10 mg PO HS 08/27/20 11/08/20 famotidine 20 mg PO QAM AND QHS 10/22/20 11/08/20 Allergies Allergy/AdvReac Type Severity Reaction Status Date / Time naproxen Allergy Unknown Rash Verified 01/03/21 21:10 adhesive tape AdvReac Rash Verified 01/03/21 21:10 Review of Systems Review of Systems: All systems reviewed & are unremarkable except as noted in HPI and below Constitutional: Constitutional: Reports no additional constitutional complaints Eyes: Eyes: Reports no additional eye complaints ENT: Reports system reviewed and no additional complaints, except as documented Cardiovascular: Cardiovascular: Reports no additional cardiovascular complaints Respiratory: Respiratory: Reports no additional respiratory complaints Gastrointestinal: Gastrointestinal: Reports no additional gastrointestinal complaints Musculoskeletal: Musculoskeletal: Reports no additional musculoskeletal complaints [facility] Past Medical History Medical History Biliary colic Cholelithiasis Colon cancer screening Depression with anxiety Insomnia Nausea and vomiting in adult Upper abdominal pain Surgical History Surgical History H/O emergency section History of dilatation and curettage Hx laparoscopic cholecystectomy 10/26/20 Hx of cataract extraction Bilateral S/P cervical spinal fusion C5 - C6 Family History Family History Son Accident Father COPD (chronic obstructive pulmonary disease) Mother COPD (chronic obstructive pulmonary disease) Cervical cancer Social History Social History Social History: 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 She is to her who is also a teacher. They had 3 children but the oldest son at the age of 19. She had all 3 boys. She has not drink alcohol in many years. She has never smoked. She does not use any marijuana or illicit drug. The patient desires to have her is a durable power prosecuting attorney for healthcare. She desires to be a full code. Smoking status: Never smoker Second hand tobacco smoke exposure: No Alcohol intake: never Substance use: never Substance use type: does not use Gender identity (if verbalized by the patient): Female Spiritual care concerns: No Exam Narrative: GENERAL: Well-appearing, well-nourished, and in no acute distress. HEAD: Normocephalic, atraumatic. EYES: PERRLA and EOMI.. NECK: Supple. CHEST: Clear to auscultation. No respiratory distress. HEART: Regular rate and rhythm. No murmur heard. Normal peripheral pulses. EXTREMITIES: Normal range of motion. No edema. Any skin avulsion noted on the left index finger with active bleeding . SKIN: Warm, dry, no rash. NEURO: No focal deficits. Alert and oriented x3. PSYCH: Normal mood and affect. Course Vital Signs Vital signs: Vital Signs Temperature 36.6 C 01/03/21 21:01 Pulse Rate 99 01/03/21 21:01 Respiratory Rate 16 01/03/21 21:01 Blood Pressu
[2021-01-03 22:29] VITALS: BP 133/88; PULSE 88; RESP 20; O2SAT 97
== END 2021-01-03 22:29 | disposition home or self-care (01) ==
PROVIDERS: Emergency Provider Family Medicine; PCP Internal Medicine
DX: S61.211A Laceration without foreign body of left index finger without damage to nail, initial encounter (principal); F41.8 Other specified anxiety disorders; Z98.42 Cataract extraction status, left eye; Z98.41 Cataract extraction status, right eye; Z98.1 Arthrodesis status; W27.0XXA Contact with workbench tool, initial encounter
CPT/HCPCS: 12001; 99282

== ENCOUNTER → 2022-05-16 13:53 | Outpatient (CLI) | payer MEDICARE, OTHER, SELFPAY ==
--- NOTE | ~2022-05-16 | MM_ITS ---
EXAMINATION: MM screening yudith BI w jayce HISTORY: Screening TECHNIQUE: Craniocaudal and mediolateral oblique 3-D tomosynthesis images were obtained and synthetic 2-D images were generated. CAD analysis was submitted and interpreted. COMPARISON: Comparison to multiple prior studies sequentially, with oldest reviewed study dated 11/2013. BREAST PARENCHYMAL COMPOSITION: Breast composed of scattered areas of fibroglandular density FINDINGS: Stable architectural distortion in the superior aspect of the right breast, likely from pre vious benign biopsy. There is no evidence of suspicious mass, calcification, or architectural distort ion to suggest malignancy in either breast. There has been no suspicious interval change. IMPRESSION: 1. No mammographic evidence of malignancy. 2. Recommend routine screening mammography in one year. BI-RADS Category 2: Benign finding(s). Reviewed, dictated and finalized at location B. S APPRENTICE
== END ==
PROVIDERS: PCP Internal Medicine; Visit Provider Internal Medicine
DX: Z12.31 Encounter for screening mammogram for malignant neoplasm of breast (principal)
CPT/HCPCS: 77063; 77067

== ENCOUNTER 2024-02-13 16:10 | Outpatient (CLI) | payer MEDICARE, OTHER, SELFPAY ==
--- NOTE | ~2024-02-13 | MR_ITS ---
MR cervical spine wo con Ordering provider: Adriano Angel, History: 73 years Female with . CERVICAL RADICULOPATHY . Comparison: None. Technique: MRI cervical spine without contrast. FINDINGS: CERVICAL SPINAL CORD/CRANIAL CERVICAL JUNCTION: Normal in signal and caliber. CERVICAL VERTEBRAL BODIES: Fusion of the C5 and C6 vertebrae. Normal height and alignment. Normal mar row signal. DISK SPACES: Normal. Multilevel facet joint disease. C2-C3: No stenosis. C3-C4: No stenosis. Diffuse disc bulge with osteophytes and narrowing of the left intervertebral fora men. C4-C5: Mild spinal canal stenosis secondary to broad based disc bulge. Bilateral narrowing of the fo ramina with root compression. C5-C6: Mild spinal canal stenosis secondary to osteophyte formation.. Bilateral narrowing of the for tiara with root compression C6-C7: No stenosis. Mild diffuse disc bulge. C7-T1: No stenosis. VISUALIZED PARASPINOUS SOFT TISSUES: Normal. IMPRESSION: 1. Fusion at the level of C5-C6. 2. No acute osseous abnormality. 3. Multilevel degenerative disc disease with variable degrees of spinal canal stenosis, intervertebr al foraminal narrowing and with compression Reviewed, dictated and finalized at location A. IMPRESSION: 1. Fusion at the level of C5-C6. 2. No acute osseous abnormality. 3. Multilevel degenerative disc disease with variable degrees of spinal canal stenosis, intervertebral foraminal narrowing and with compression
== END 2024-02-13 16:11 | disposition home or self-care (01) ==
LOC: MICIMG 16:11
PROVIDERS: PCP Internal Medicine; Visit Provider Internal Medicine
DX: M54.12 Radiculopathy, cervical region (principal); M50.30 Other cervical disc degeneration, unspecified cervical region; Z98.1 Arthrodesis status
CPT/HCPCS: 72141

== ENCOUNTER 2025-05-31 14:10 | Outpatient (CLI) | payer MEDICARE, OTHER, SELFPAY ==
--- NOTE | ~2025-05-31 | DEXA_ITS ---
Bone Density Report Name: DREW MENDEZ Age: 74 Sex: Female Ethnicity: White Date of : 1950 Indication: postmenopausal; screening for osteoporosis; cancer; Referring Provider: HUEY, RAVEN Jones Study: Bone densitometry was performed. Exam Date: May 31, 2025 Accession number: [id number] Bone Density: Region BMD T-score Z-score Classification AP Spine(L1-L4) 1.160 1.0 3.4 Normal Femoral Neck (Left) 0.666 -1.6 0.4 Osteopenia Total Hip (Left) 0.859 -0.7 1.1 Normal Femoral Neck (Right) 0.811 -0.3 1.7 Normal Total Hip (Right) 0.910 -0.3 1.5 Normal Total Hip Mean 0.884 -0.5 1.3 Normal World Health Organization criteria for BMD impression classify patients as: Normal (T-score at or above -1.0), Osteopenia (T-score between -1.0 and -2.5), or Osteoporosis (T-score at or below -2.5). 10-year Fracture Risk(1): Major Osteoporotic Fracture 11% Hip Fracture 2.3% Reported Risk Factors: [place] (), Neck BMD=0.666, BMI=28.3 (1) FRAX(R) Version 3.08. Fracture probability calculated for an untreated patient. Fracture probability may be lower if the patient has received treatment. Previous Exams: -- Region Exam Age BMD T-score BMD Change BMD Change Date g/cm2 vs Baseline vs Previous -- AP Spine (L1-L4) 05/31/2025 74 1.160 1.0 -5.9%* 0.5% 09/22/2020 69 1.154 1.0 -6.4%* 3.3%* 01/22/2016 65 1.117 0.6 -9.4%* -3.0%* 01/19/2014 63 1.152 1.0 -6.5%* 2.5%* 01/30/2011 60 1.125 0.7 -8.8%* -8.8%* 09/12/2008 57 1.232 1.7 Total Hip(Left) 05/31/2025 74 0.859 -0.7 -15.8%* -9.2%* 09/22/2020 69 0.946 0.0 -7.3%* -2.3% 01/22/2016 65 0.969 0.2 -5.1%* -1.7% 01/19/2014 63 0.986 0.4 -3.4%* -4.3%* 01/30/2011 60 1.030 0.7 0.9% 0.9% 09/12/2008 57 1.021 0.6 Total Hip(Right) 05/31/2025 74 0.910 -0.3 -7.1%* -2.3% 09/22/2020 69 0.931 -0.1 -4.9%* -4.7%* 01/22/2016 65 0.977 0.3 -0.3% -0.7% 01/19/2014 63 0.983 0.3 0.4% -1.7% 01/30/2011 60 1.001 0.5 2.2% 2.2% 09/12/2008 57 0.979 0.3 -- *Denotes significance at 95% confidence level, LSC for AP Spine = 0.022 g/cm2, LSC for Total Hip = 0.027 g/cm2 Clinical Information Provided by Patient: Has used the following medications: Vitamin D, Calcium Has the following medical conditions: Cancer, Squamus cell skin CA Patient maximum height was 66 Menopause Age: 48 No regular weight bearing exercise Does not regularly consume dairy products Drinks caffeinated beverages Onset of menses at age 15 Number of children 3 Impression: The patient has low bone mass, based on the Left Femoral Neck T-score. The patient has an estimated ten-year risk of hip fracture of 2.3% and an estimated ten-year risk of major fracture of 11%, based on the WHO FRAX algorithm. The BMD for the Total Hip(Left) decreased, changing by -9.2% since the last DXA exam. Discussion: BONE DENSITY IS LOW AT ONE OR MORE SKELETAL SITES. This patient's lowest T-score is low at one or more skeletal sites. It meets the World Health Organization's (WHO) criteria for ?low bone mass? (T-score between -1.0 and -2.5). The patient's 10-year risk of fracture as calculated by FRAX is less than the threshold where pharmacological therapy is recommended by the National Osteoporosis Foundation (NOF). However, all treatment decisions require clinical judgment and consideration of individual patient factors, including patient preferences, comorbidities, previous drug use, risk factors not captured in the FRAX model (e.g., frailty, falls, vitamin D deficiency, increased bone turnover, interval significant decline in bone density) and possible under or overestimation of fracture risk by FRAX. The patient should follow a healthful lifestyle (good nutrition with adequate calcium and vitamin D, and appropriate weight-bearing exercise). Follow-Up: Consider repeating this study in 2 years to reassess this patient's status, or sooner if there is some new clinical indication. Reported by: DOLLY on 05/31/2025 2:43:00 PM. Reviewed, dictated and finalized at location A.
--- NOTE | ~2025-05-31 | MM_ITS ---
EXAMINATION: MM screening yudith BI w jayce HISTORY: Screening TECHNIQUE: Craniocaudal and mediolateral oblique 3-D tomosynthesis images were obtained and synthetic 2-D images were generated. CAD analysis was submitted and interpreted. COMPARISON: 2021 and 2020 BREAST PARENCHYMAL COMPOSITION: The breast tissue is heterogeneously dense, which may obscure small masses. FINDINGS: No suspicious masses are seen. There are no suspicious calcifications. No unexplained architectural distortion is seen. There are no skin or nipple abnormalities identified. There is no adenopathy seen on the images submitted. IMPRESSION: No mammographic evidence to suggest malignancy is seen. The patient may return to screening mammography as per ACR guidelines. BI-RADS 1 - Negative. Reviewed, dictated and finalized at location C. SAWING MACHINE OPERATOR
== END 2025-05-31 14:11 | disposition home or self-care (01) ==
LOC: MICIMG 14:11
PROVIDERS: PCP Internal Medicine; Visit Provider Internal Medicine
DX: Z12.31 Encounter for screening mammogram for malignant neoplasm of breast (principal); M85.811 Other specified disorders of bone density and structure, right shoulder
CPT/HCPCS: 77063; 77067; 77080